=== PATIENT | male | born 1955 | race Caucasian/White ===

== ENCOUNTER 2018-08-14 12:49 | Emergency (ER) | payer OTHER ==
[2018-08-14] MEDS ORDERED: oxyCODONE/Acetamin 5/325 MG* TAB PO ONE (14:30)
--- NOTE | 2018-08-14 14:30 | ED ---
Back Pain - HPI Summary HPI Summary: Pt is a 63 y/o M presenting to [facility] with his sister with a CC of lower left back pain that has been waking him up at night. He states that the pain is described as a burning and has been getting worse for around 4 weeks. He stated that he has trouble moving when he first wakes up in the morning. He described that he had one day of tingling that radiated from his back to his knees. He denies any weakness, fever, N/V/D, Cp, neck pain, abdominal pain, headaches and cough. He has no alleviating or aggravating symptoms. He has a Hx of rheumatoid arthritis in his hands. He also has a Hx of back surgery that left him with 2 rods, 3-4 screws and back plates. He had a herniated, bulging disk, and a curvature of the spine 3 years ago. He also has had 3 knee surgeries and a hip replacement. He reported a 2nd surgery in april 2017. He has been moving back to [place] for the past week. - History of Current Complaint Chief Complaint: EDBackInjuryPain Stated Complaint: NAUSEA AND BACK PAIN PER PT Time Seen by Provider: 08/14/18 14:16 Hx Obtained From: Patient Onset/Duration: Gradual Onset - for about a month, Lasting Weeks - 4, Still Present, Worse Since Onset/Duration: Started Weeks Ago - 4, Still Present, Worse Since Timing: Constant Back Pain Location: Is Diffuse - low back Severity Initially: Mild Severity Currently: Moderate Pain Intensity: 4 Pain Scale Used: 0-10 Numeric Character: Burning Aggravating Symptom(s): Movement - especially in the morning, Other Alleviating Symptom(s): Nothing Associated Signs And Symptoms: Positive: Negative - weakness, fever, N/V/D, Cp, neck pain, abdominal pain, headaches, bladder or bowel incontinence, and cough. , Tingling - one day, radiated from his low back to his knees bilaterally - Allergies/Home Medications Allergies/Adverse Reactions: Allergies Allergy/AdvReac Type Severity Reaction Status Date / Time Penicillins Allergy Intermediate Rash Verified 08/14/18 13:01 PMH/Surg Hx/FS Hx/Imm Hx Previously Healthy: No Cardiovascular History: Reports: Hx Hypertension Musculoskeletal History: Reports: Hx Rheumatoid Arthritis - Surgical History Hx Anesthesia Reactions: No Other Surgical History: extensive back surgery in 2016, 3 knee surgeries, hip replacement surgery, 2nd back surgery in april 2017 Infectious Disease History: No Infectious Disease History: Denies: Traveled Outside the [place] in Last 30 Days - Family History Known Family History: Positive: Cardiac Disease - Social History Alcohol Use: Occasionally Hx Substance Use: No Substance Use Type: Reports: None Hx Tobacco Use: No Smoking Status (MU): Never Smoked Tobacco Review of Systems Negative: Fever Negative: Chest Pain Negative: Shortness Of Breath, Cough Negative: Abdominal Pain, Vomiting, Diarrhea, Nausea Negative: incontinence - NEGATIVE: bowel or urinary incontinence Positive: Myalgia - low back pain Neurological: Other - tingling that radiated from his low back to his knees for one day Negative: Headache, Weakness All Other Systems Reviewed And Are Negative: Yes Physical Exam - Summary Physical Exam Summary: Appearance: Well-appearing, Well-nourished, lying in bed comfortably Skin: Warm, dry, no obvious rash Eyes: sclera anicteric, no conjunctival pallor ENT: mucous membranes moist, pharynx appears normal Neck: Supple, nontender Respiratory: Clear to auscultation, no signs of respiratory distress Cardiovascular: Normal S1, S2. No murmurs. Normal distal pulses in tibial and radial bilaterally. Abdomen: Soft, nontender, normal active bowel sounds present Musculoskeletal: Back: well healed surgical scars over his lumbar spine, limited ROM in flection of the back, no vertebral tenderness, no skin lesions Neurological: A&Ox3, awake and alert, mentation is normal, speech is fluent and appropriate, no foot drop, or other focal weakness in the LE, normal gait Psychiatric: affect is normal, does not appear anxious or depressed Triage Information Reviewed: Yes Vital Signs On Initial Exam: Initial Vitals Temp Pulse Resp BP Pulse Ox 98.5 F 94 14 145/97 97 08/14/18 12:54 08/14/18 12:54 08/14/18 12:54 08/14/18 12:54 08/14/18 12:54 Vital Signs Reviewed: Yes Diagnostics - Vital Signs Vital Signs Temp Pulse Resp BP Pulse Ox 08/14/18 12:54 98.5 F 94 14 145/97 97 - Laboratory Result Diagrams: 08/14/18 14:42 08/14/18 14:42 Lab Statement: Any lab studies that have been ordered have been reviewed, and results considered in the medical decision making process. - Radiology Lumbar Spine X-Ray Radiology Interpretation Completed By: Radiologist Summary of Radiographic Findings: 1. EXTENSIVE POSTSURGICAL CHANGES. THE SURGICAL HARDWARE APPEARS INTACT. 2. DEGENERATIVE DISC DISEASE. ED Physician has reviewed this report. Back Pain Course/Dx - Course Course Of Treatment: Pt is a 63 y/o M presenting to [facility] with his sister with a CC of lower left back pain that has been waking him up at night. He states that the pain is described as a burning and has been getting worse for around 4 weeks. He stated that he has trouble moving when he first wakes up in the morning. He described that he had one day of tingling that radiated from his back to his knees. Upon his PE he is found to have well healed surgical scars over his lumbar spine, limited ROM in flection of the back, no vertebral tenderness, and no skin lesions over his back. He also has no foot drop, or other focal weakness in the LE, and a normal gait. He has abnormal lab values in BUN, BUN/Creatinine ratio, Glucose. Pt was given 1 5/325 Percocet TAB during his ED course. His lumbar spine X-Ray shows: 1. EXTENSIVE POSTSURGICAL CHANGES. THE SURGICAL HARDWARE APPEARS INTACT 2. DEGENERATIVE DISC DISEASE. Pt will be discharge with acute low back pain and a referal with Dr. Mendoza with for a follow up at his office. - Diagnoses Provider Diagnoses: Acute low back pain Discharge - Sign-Out/Discharge Documenting (check all that apply): Patient Departure - discharge Patient Received Moderate/Deep Sedation with Procedure: No - Discharge Plan Condition: Stable Disposition: HOME Prescriptions: oxyCODONE/Acetamin 5/325 MG* [Percocet 5/325 TAB*] 1 tab PO Q4H PRN #15 tab MDD 6 PRN Reason: Pain - Back Patient Education Materials: Acute Low Back Pain (ED) Referrals: [facility] [Outside] Rosalba Seay MD [Medical Doctor] - Additional Instructions: The [facility] should be able to help you until you find a local principal cloud architect and/or plastic block boiler reliner. Dr. Gutierrez is a spine surgeon and given your prior surgical history it would be good to have him see you and review your films. If you have any MRI scans or other imaging tests from [place] it would be very helpful to get copies of those images. - Billing Disposition and Condition Condition: STABLE Disposition: Home - Attestation Statements Document Initiated by Scribe: Yes Documenting Scribe: Willis Elam Provider For Whom Scribbela is Documenting (Include Credential): Christopher Manuel MD Scribe Attestation: IWillis, scribed for Christopher Manuel MD on 08/16/18 at 0450. Scribe Documentation Reviewed: Yes Provider Attestation: The documentation as recorded by the Willis molina accurately reflects the service I personally performed and the decisions made by meChristopher MD Status of Scribe Document: Viewed
[2018-08-14 14:49] LABS: ABS Eosinophils 0.2 10^3/ul (0-0.6); ABS Monocytes 0.6 10^3/ul (0-0.8); ABS Neutrophils 3.7 10^3/ul (1.5-7.7); Eosinophil % 2.9 %; Hematocrit 38 % (42-52); Lymphocyte % 17.5 %; Mean Corpuscular HGB Conc 34 g/dL (31-36); Mean Corpuscular Hemoglobin 29 pg (27-31); Mean Corpuscular Volume 87 fL (80-94); Mean Platelet Volume 7.6 fL (7.4-10.4); Platelet Count 199 10^3/uL (150-450); Red Blood Count 4.43 10^6 /uL (4.18-5.48); Red Cell Distribution Width 14 % (10-15); White Blood Count 5.4 10^3/uL (3.5-10.8)
[2018-08-14 15:05] LABS: BUN/Creatinine Ratio 29.6 (8-20); C Reactive Protein 5.37 mg/L (<8.01); Calcium 9.2 mg/dL (8.6-10.3); EGFR African American 93.5 (>60); EGFR Non-African American 77.2 (>60)
[2018-08-14 15:36] VITALS: BP 141/76
== END 2018-08-14 15:35 | disposition home or self-care (01) ==
LOC: ED 12:49
DX: M54.5 Low back pain (principal); I10 Essential (primary) hypertension
CPT/HCPCS: 36415; 72100; 80048; 85025; 86140; 99282; A9270-GY

== ENCOUNTER 2018-08-16 21:49 | Emergency (ER) | payer OTHER ==
--- NOTE | 2018-08-17 01:07 | ED ---
Back Pain - HPI Summary HPI Summary: This patient is a 63 year old M presenting to [facility] with a chief complaint of sharp left lower back/flank pain since 08/13/18 when he was seen in the ED. Since that visit his pain has been increasing and is not controlled with ibuprofen. Pain rated 6/10 in severity. Denies abdominal pain, fever, and dysuria. Patient reports a history of kidney stones. - History of Current Complaint Chief Complaint: EDFlankPain Stated Complaint: BACK PAIN PER PT Time Seen by Provider: 08/17/18 00:58 Hx Obtained From: Patient Onset/Duration: Gradual Onset, Lasting Weeks Onset/Duration: Started Weeks Ago Timing: Constant Back Pain Location: Is Discrete @ - left lower back/flank pain Pain Intensity: 6 Pain Scale Used: 0-10 Numeric Character: Sharp Associated Signs And Symptoms: Positive: Flank Pain. Negative: Fever, Abdominal Pain - Allergies/Home Medications Allergies/Adverse Reactions: Allergies Allergy/AdvReac Type Severity Reaction Status Date / Time Penicillins Allergy Intermediate Rash Verified 08/16/18 21:55 PMH/Surg Hx/FS Hx/Imm Hx Cardiovascular History: Reports: Hx Hypertension Musculoskeletal History: Reports: Hx Rheumatoid Arthritis - Surgical History Hx Anesthesia Reactions: No - Immunization History Immunizations Up to Date: Yes Infectious Disease History: No Infectious Disease History: Denies: Traveled Outside the US in Last 30 Days - Family History Known Family History: Positive: Cardiac Disease - Social History Alcohol Use: Occasionally Hx Substance Use: No Substance Use Type: Reports: None Hx Tobacco Use: No Smoking Status (MU): Never Smoked Tobacco Review of Systems Negative: Fever Negative: Abdominal Pain Positive: flank pain. Negative: dysuria All Other Systems Reviewed And Are Negative: Yes Physical Exam - Summary Physical Exam Summary: Appearance: Well-appearing, Well-nourished, lying in bed comfortably Skin: Warm, dry, no obvious rash Eyes: sclera anicteric, no conjunctival pallor ENT: mucous membranes moist, pharynx appears normal Neck: Supple, nontender Respiratory: Clear to auscultation, no signs of respiratory distress Cardiovascular: Normal S1, S2. No murmurs. Normal distal pulses in tibial and radial bilaterally. Abdomen: Soft, nontender, normal active bowel sounds present Musculoskeletal: Normal, Strength/ROM Intact Neurological: A&Ox3, awake and alert, mentation is normal, speech is fluent and appropriate Psychiatric: affect is normal, does not appear anxious or depressed Triage Information Reviewed: Yes Vital Signs On Initial Exam: Initial Vitals Temp Pulse Resp BP Pulse Ox 97.5 F 92 16 162/106 100 08/16/18 21:50 08/16/18 21:50 08/16/18 21:50 08/16/18 21:50 08/16/18 21:50 Vital Signs Reviewed: Yes Diagnostics - Vital Signs Vital Signs Temp Pulse Resp BP Pulse Ox 08/17/18 00:35 97.0 F 84 20 147/86 95 08/16/18 21:50 97.5 F 92 16 162/106 100 - Laboratory Lab Statement: Any lab studies that have been ordered have been reviewed, and results considered in the medical decision making process. Back Pain Course/Dx - Course Course Of Treatment: 63 year old M presenting to [facility] with a chief complaint of sharp left lower back/flank pain since 08/13/18 when he was seen in the ED. Denies abdominal pain, fever, and dysuria. Patient is given oxycodone for pain. UA is unremarkable. Pain is resolved. Patient is discharged home and is instructed to follow up with sports medicine. Patient is agreeable with this plan. - Diagnoses Provider Diagnoses: Back pain Discharge - Sign-Out/Discharge Documenting (check all that apply): Patient Departure - discharge Patient Received Moderate/Deep Sedation with Procedure: No - Discharge Plan Condition: Good Disposition: HOME Patient Education Materials: Acute Low Back Pain (ED) Referrals: [facility] [Provider Group] - As Soon As Possible - Billing Disposition and Condition Condition: GOOD Disposition: Home - Attestation Statements Document Initiated by Quoc: Yes Documenting Scribe: Wendie Coleman Provider For Whom Quoc is Documenting (Include Credential): Christopher Manuel MD Scribe Attestation: Wendie Corbin, scribed for Christopher Manuel MD on 08/19/18 at 0828. Scribe Documentation Reviewed: Yes Provider Attestation: The documentation as recorded by the Wendie molina accurately reflects the service I personally performed and the decisions made by me, Christopher Manuel MD Status of Scribe Document: Viewed
[2018-08-17] MEDS ORDERED: oxyCODONE/Acetamin 5/325 MG* TAB PO ONE (01:08)
[2018-08-17 01:35] LABS: Urine Appearance Clear; Urine Bilirubin Negative (Negative); Urine Blood Negative (Negative); Urine Color Yellow; Urine Glucose Negative (Negative); Urine Ketones Negative (Negative); Urine Nitrite Negative (Negative); Urine Protein Negative (Negative); Urine Specific Gravity 1.015 (1.010-1.030); Urine Urobilinogen Negative (Negative)
[2018-08-17 03:11] VITALS: BP 146/83
== END 2018-08-17 03:10 | disposition home or self-care (01) ==
LOC: ED 21:49
DX: M54.9 Dorsalgia, unspecified (principal); I10 Essential (primary) hypertension; M06.9 Rheumatoid arthritis, unspecified
CPT/HCPCS: 81003; 99282; A9270-GY

== ENCOUNTER 2018-12-04 05:33 | Inpatient (IN) | payer MEDICARE, OTHER ==
[~2018-12-04 05:33] MED LIST: Acetaminophen TAB* 325 MG PO ONE; Buffered Lidocaine 1% SYRIN* 1 ML/SYRINGE INTRADERM ONE; Vancomycin(*) 1,000 MG in NS 0.9% 250 ML* 250 ML IVPB SCH
--- OUTSIDE RECORDS SUMMARY | 2018-12-04 05:37 | XMS REPORT | Continuity of Care Document ---
:1955 External Reference #:[id number] Author Name Da Suarez DO FACC (transmitted by agent of provider Staci De Guzman) Address [address] [place] [address] Care Team Providers Name Role Phone Mathieu Camargo D.O. - Family Medicine Care Team Information Equity Research Associate Problems Description No Information Available Social History Type Date Description Comments Sex Unknown ETOH Use Occasionally consumes alcohol Tobacco Use Start: Unknown Patient has never smoked Recreational Drug Use Denies Drug Use Smoking Status Reviewed: 11/24/18 Patient has never smoked Allergies, Adverse Reactions, Alerts Active Allergies Reaction Severity Comments Date Penicillin V 09/10/2018 Medications Active Medications SIG Qnty Indications Ordering Provider Date Oxycodone-Acetaminophen 1 tabs by 21su Navarrete 09/23/2018 mouth every 4 MD Geena 5-325mg Tablets hours as needed pain Atorvastatin Calcium 1 tab by mouth Unknown 40mg once daily Tablets Lisinopril-Hydrochloroth 1 tablet po Unknown iazide daily 20-12.5mg Tablets Omeprazole 1 tab by mouth Unknown 20mg Capsules DR once daily Tamsulosin HCL 1 tab by Unknown 0.4mg Capsules mouth once daily Duloxetine HCL 1 tab by mouth Unknown 60mg Caps DR twice daily Part Methotrexate 5 tabs by Unknown 2.5mg Tablets mouth once a week Folic Acid 1 tab by mouth Unknown 1mg Tablets once daily Pramipexole 1 po tid Unknown Dihydrochloride 1mg Tablets Immunizations Description No Information Available Vital Signs Date Vital Result Comment 11/24/2018 2:21pm Height 67 inches 5'7" Weight 160.00 lb with shoes Heart Rate 86 /min BP Systolic 126 mmHg LA BP Diastolic 62 mmHg LA BP Systolic Sitting 132 mmHg Ra BP Diastolic Sitting 80 mmHg Ra BP Systolic Standing 120 mmHg Ra BP Diastolic Standing 60 mmHg Ra BMI (Body Mass Index) 25.1 kg/m2 Ejection Fraction None 10/20/2018 3:44pm Height 67 inches 5'7" Weight 161.00 lb Heart Rate 100 /min BP Systolic Sitting 124 mmHg BP Diastolic Sitting 76 mmHg Respiratory Rate 16 /min O2 % BldC Oximetry 96 % BMI (Body Mass Index) 25.2 kg/m2 Results Test Date Facility Test Result H/L Range Note CBC Auto 09/24/2018 [facility] White Blood 4.8 10^3/uL Normal 3.5-10.[address] [place] [address] [phone] Red Blood Count 4.56 10^6/uL Normal 4.18-5.48 Hemoglobin 13.6 g/dL Low 14.0-18.0 Hematocrit 39 % Low 42-52 Mean Corpuscular Volume 86 fL Normal 80-94 Mean Corpuscular Hemoglobin 30 pg Normal 27-31 Mean Corpuscular HGB Conc 35 g/dL Normal 31-36 Red Cell Distribution Width 15 % Normal 10-15 Platelet Count 202 10^3/uL Normal 150-450 Mean Platelet Volume 7.9 fL Normal 7.4-10.4 Abs Neutrophils 3.5 10^3/uL Normal 1.5-7.7 Abs Lymphocytes 0.9 10^3/uL Low 1.0-4.8 Abs Monocytes 0.3 10^3/uL Normal 0-0.8 Abs Eosinophils 0.1 10^3/uL Normal 0-0.6 Abs Basophils 0.0 10^3/uL Normal 0-0.2 Abs Nucleated RBC 0.0 10^3/uL Granulocyte % 71.8 % Lymphocyte % 18.4 % Monocyte % 6.9 % Eosinophil % 2.4 % Basophil % 0.5 % Nucleated Red Blood Cells % 0.0 Laboratory test 09/24/2018 [facility] Erythrocyte Sed 15 mm/Hr Normal 0-[address] [place] [address] [phone] C Reactive Protein 3.60 mg/L Normal <8.01 Procedures Date Code Description Status 11/24/2018 61470 EKG Tracing & Interpretation Completed Medical Devices Description No Information Available Encounters Type Date Location Provider Dx Diagnosis Office Visit 10/20/2018 [facility] M41.9 Scoliosis, 3:30p [facility] Se[facility] MD unspecified M47.895 Other spondylosis, thoracolumbar region 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, thoracolumbar region Office Visit 10/17/2018 [facility] M47.895 Other spondylosis, 10:30a [facility] Re[facility] thoracolumbar region Office Visit 09/26/2018 [facility] 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, lumbar region M48.05 Spinal stenosis, thoracolumbar region Office Visit 09/10/2018 1:00p [facility]att M54.5 Low back Of [facility] PAIGE pain Assessments Date Code Description Provider 11/24/2018 Z01.810 Encounter for preprocedural Da Suarez DO [facility] cardiovascular examination 11/24/2018 I10 Essential (primary) hypertension Da Suarez DO FAC 11/24/2018 E78.5 Hyperlipidemia, unspecified Da Suarez DO FAC 11/13/2018 M47.816 Lumbar spondylosis Rosalba Seay MD 11/13/2018 M51.35 Other intervertebral disc aj, Rosalba Seay MD thoracolumbar region 10/20/2018 M41.9 Scoliosis, unspecified Rosalba Seay MD 10/20/2018 M47.895 Other spondylosis, thoracolumbar region Rosalba Seay MD 10/20/2018 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, Rosalba Seay MD thoracolumbar region 10/17/2018 M47.895 Other spondylosis, thoracolumbar region ROYAL Pace 09/26/2018 M47.816 Lumbar spondylosis ROYAL Pace 09/26/2018 M48.05 Spinal stenosis, thoracolumbar region ROYAL Pace 09/10/2018 M54.5 Lumbar facet joint pain ROYAL Pace Plan of Treatment Future Appointment(s):03/09/2019 1:00 pm - ROYAL Pace at [facility]01/07/2019 3:30 pm - ROYAL Pace at [facility]12/12/2018 9:00 am - Rosalba Seay MD at [facility]11/25/2018 11:00 am - Tito Mazariegos MD at [facility]12/04/2018 7:30 am - ROYAL Pace at [facility] 7:30 am - Rosalba Seay MD at [facility] - Da Suarez DO FACCZ01.810 Encounter for preprocedural cardiovascular [id number] Essential (primary) cqumhubhteaeM77.5 Hyperlipidemia, unspecified Functional Status Description No Information Available Mental Status Description No Information Available Referrals Refer to Dr Reason for Referral Status Appt Da Suarez DO, FACC preoperative consult Sent [address] [id number] [phone] [facility] Axium Nanofibers [facility] to request a Sent nutritional consultation to prepare the patient for this operation [address] [place] [address] [phone] Nikhil Corona MD preoperative consult Sent [address] [place] [address] [place] [address] [phone] Nik Faulkner MD 63 y/o male with c/o increased axial low Scheduled 08/2018 back pain has undergone lumbar fusion x 2. Patient would like to be seen soon as possible. [address] [place] [address] [phone]
--- OUTSIDE RECORDS SUMMARY | 2018-12-04 05:37 | XMS REPORT | Summary of Care ---
:1955 Author Organization [facility] Address [address] [place] [address] Care Team Providers Name Role Phone Mathieu Camargo DO Primary Care Provider Reason for Visit Reason Comments Error Encounter Details Date Type Department Care Team Description 11/04/[address] [facility] Mathieu Camargo DO ERRONEOUS Practice [address] [facility] ENCOUNTER--DISREGARD [address] [place] [address] (Primary Dx) [place] [address] [phone] Allergies Active Allergy Reactions Severity Noted Date Comments Penicillins Rash 09/02/2018 documented as of this encounter (statuses as of 11/06/2018) Medications Medication Sig Dispensed Refills Start Date End Date Status atorvastatin Take 40 mg 0 Active (LIPITOR) 40 MG Oral by mouth Tab DAILY. pramipexole Take 1 mg 0 Active (MIRAPEX) 1 MG Oral by mouth Tab THREE TIMES DAILY. methylphenidate Take 20 mg 0 Active (RITALIN) 20 MG Oral by mouth Tab THREE TIMES DAILY. duloxetine Take 60 mg 0 Active (CYMBALTA) 60 MG by mouth Oral CAPSULE ENTERIC TWICE COATED PARTICLES DAILY. Tamsulosin HCl Take 0.4 mg 0 Active (FLOMAX) 0.4 MG Oral by mouth Cap DAILY. pantoprazole Take 20 mg 0 Active (PROTONIX) 20 MG by mouth Oral Tab EC DAILY. Methotrexate 2.5 MG Take 15 mg 0 Active Oral Tab by mouth EVERY 7 DAYS. OXYcodone-acetaminop Take 1 Tab 10 Tab 0 10/01/2018 Active hen (PERCOCET) 5-325 by mouth MG Oral Tab EVERY TWELVE HOURS NEEDED (pain). Max Daily Amount: 2 Tabs. lisinopril-hydrochlo Take 1 Tab 90 Tab 0 11/04/2018 Active rothiazide by mouth (ZESTORETIC, DAILY. PRINZIDE) 20-12.5 MG Oral Tab Dexamethasone 0.5 Take 5 mL 300 mL 0 11/04/2018 Active MG/5ML Oral Elixir by mouth 9 FOUR TIMES DAILY for 5 days. 5 mL swish and spit four times daily diclofenac Take 75 mg 0 Discontinued (VOLTAREN) 75 MG by mouth 9 Oral Tab EC TWICE DAILY. lisinopril-hydrochlo Take 1 Tab 0 Discontinued rothiazide by mouth. 9 (Reorder) (ZESTORETIC, PRINZIDE) 20-12.5 MG Oral Tab predniSONE Take 1 Tab 6 Tab 0 09/02/2018 Discontinued (DELTASONE) 20 MG by mouth 9 Oral TabIndications: DAILY. Left-sided low back pain without sciatica, unspecified chronicity documented as of this encounter (statuses as of 11/06/2018) Active Problems Problem Noted Date Rheumatoid arthritis HTN (hypertension) HLD (hyperlipidemia) documented as of this encounter (statuses as of 11/06/2018) Social History Tobacco Use Types Packs/Day Years Used Date Never Smoker Smokeless Tobacco: Never Used Alcohol Use Drinks/Week oz/Week Comments Not Currently Sex Assigned at Date Recorded Not on file Job Start Date Occupation Industry Not on file Not on file Not on file Travel History Travel Start Travel End No recent travel history available. documented as of this encounter Last Filed Vital Signs Vital Sign Reading Time Taken Comments Blood Pressure 142/68 11/04/2018 2:36 PM EDT Pulse 95 11/04/2018 2:36 PM EDT Temperature - - Respiratory Rate - - Oxygen Saturation 98% 11/04/2018 2:36 PM EDT Inhaled Oxygen Concentration - - Weight 73.7 kg (162 lb 8 oz) 11/04/2018 2:36 PM EDT Height 170.2 cm (5' 7") 11/04/2018 2:36 PM EDT Body Mass Index 25.45 11/04/2018 2:36 PM EDT documented in this encounter Progress Notes Mathieu Camargo DO - 11/04/2018 2:40 PM EDTA user error has taken place: encounter opened in error, closed for administrative reasons. documented in this encounter Plan of Treatment Health Maintenance Due Date Last Done Comments MEDICARE ANNUAL WELLNESS VISIT 1955 HIV SCREENING 06/25/1970 COLONOSCOPY SCREENING 06/25/2005 ZOSTER IMMUNIZATION SERIES (1 of 06/25/2005 2) INFLUENZA VACCINE (#1) 2018 DEPRESSION SCREENING 09/03/2019 09/02/2018 LIPID DISORDER SCREENING 09/03/2019 09/02/2018 DIABETES SCREENING 11/05/2019 11/04/2018 HEPATITIS C SCREENING Completed 11/04/2018 HPV IMMUNIZATION SERIES Aged Out No longer eligible based on patient's age to complete this topic MENINGOCOCCAL VACCINE IMM Aged Out No longer eligible based on patient's age to complete this topic PNEUMOCOCCAL 0-64 YRS Aged Out No longer eligible based on patient's age to complete this topic documented as of this encounter Goals Goal Patient Goal Associated Recent Patient-Stated? Author Type Problems Progress Blood Pressure Blood Pressure 142/68 No Mathieu Camargo < 150/90 (11/04/2018 DO Anneliese 3:17 PM EDT) Note: This is an individualized treatment (blood pressure) goal for Tito Walker: Displayed above (on the left) is your goal for blood pressure control. Your most recent blood pressure is also shown above, on the right. You should try to achieve blood pressures that are lower than your goal listed above (on the left). Take all prescribed medications as directed Self-management No Mathieu Camargo DO Note: This is an individualized self-management goal for Tito Walker: Please take all prescribed medications as directed. 1. Do not skip doses. If you cannot afford your medications, talk with your doctor. 2. Use a pill reminder system such as a pill box if needed. Your pharmacist can help you with this. 3. Contact your Pharmacy 5 days before your medication runs out. If you cannot take your medications for any reasons, talk with your doctor. 4. Please bring all of your medication bottles and inhalers (or a list of all your medications/inhalers) with you to every visit. Potential barriers to meeting all of your care plan goals will continue to be addressed on an ongoing basis. documented as of this encounter Results HEPATITIS C ANTIBODY WITH RELEX RNA, RT PCR (11/04/2018 3:40 PM EDT) Hepatitis C Ab 0.01 <1.00 S/C [facility] Specimen Blood Narrative Performed At [facility] Test Result [facility] Conclusion From Testing Algorithm <1.00 Negative >=1.00 Reactive Note For Reactive Results: A positive test result by this screening method does not confirm the presence of Hepatitis C antibodies. Confirmation by Hepatitis C Virus RNA PCR (Heptamax) is required. Due to stability issues, a new specimen must be obtained for Hepatitis C Virus RNA PCR testing. Performing Organization Address City/State/Zipcode Phone Number [facility] [address] [place] [address] [phone] COMPREHENSIVE METABOLIC PANEL (11/04/2018 3:40 PM EDT) Sodium 138 134 - 145 mmol/L [facility] Potassium 4.1 3.5 - 5.1 mmol/L [facility] Chloride 103 98 - 107 mmol/L [facility] CO2 27 22 - 30 mmol/L [facility] Calcium 9.2 8.3 - 10.1 mg/dl [facility] Albumin 4.3 3.5 - 5.0 g/dl [facility] BUN 30 (H) 9 - 20 mg/dl [facility] Creatinine 0.9 0.8 - 1.5 mg/dl [facility] Glucose 97 70 - 99 mg/dl [facility] Total Protein 7.4 6.3 - 8.2 g/dl [facility] Total Bilirubin 1.4 (H) 0.0 - 1.1 MG/DL [facility] AST 29 17 - 59 U/L [facility] ALT 25 21 - 72 U/L [facility] Alkaline 95 40 - 150 U/L [facility] Phosphatase [facility] eGFR >60 See Interpretation [facility] Comment: Below ml/min/1.73ml [facility] Estimated GFR Interpretation: Above 60ml/min/1.73m2 = Normal Renal Function 30-59 ml/min/1.73m2 = Stage 3 Chronic Kidney Disease 15-29 ml/min/1.73m2 = Stage 4 Chronic Kidney Disease Less than 15 ml/min/1.73m2 = Stage 5 Chronic Kidney Disease The GFR value is calculated using the Modification of Diet in Renal Disease ( MDRD) Study Equation which can be found at: https://www.kidney.org/content/alpm-uvkjj-zrcreevo BUN/Creatinine 33 (H) 6 - 22 RATIO [place] [employer] [facility] Anion Gap 8 3 - 11 mmol/L [place] [employer] [facility] A/G Ratio 1.4 0.8 - 2.0 ratio [facility] Specimen Blood Performing Organization Address City/State/Zipcode Phone Number [place] [employer] [facility] [address] [place] [address] [phone] documented in this encounter Visit Diagnoses Diagnosis ERRONEOUS ENCOUNTER--DISREGARD - Primary documented in this encounter Insurance Payer Benefit Plan / Subscriber ID Effective Phone Address Type Group Dates MEDICARE MEDICARE PART A xxxxxxxxxxx 2015-Pres Medicare & B ent [employer] MEDICARE [employer] MEDICARE xxxxxxxxx 2018-Prese Commercial SUPPLEMENT SUPPLEMENT nt (Home) [address] [place] [address] documented as of this encounter
--- OUTSIDE RECORDS SUMMARY | 2018-12-04 05:37 | XMS REPORT | Summary of Care ---
:1955 Author Organization [facility] Address [address] [place] [address] Care Team Providers Name Role Phone Mathieu Camargo DO Primary Care Provider Reason for Visit Reason Comments Pre-op Exam here for preop Physical for back surgery Encounter Details Date Type Department Care Team Description 11/04/2018 Office Visit [facility] Mathieu Camargo DO Spondylosis of lumbar region without myelopathy or radiculopathy (Primary Dx); Practice [address] [facility] Need for hepatitis C screening test; [address] [facility] [place] [address] Pre-op evaluation; [place] [address] Hypertension, unspecified type; [phone] Aphthous ulcer of mouth; (Fax) Constipation due to opioid therapy Allergies Active Allergy Reactions Severity Noted Date Comments Penicillins Rash 09/02/2018 documented as of this encounter (statuses as of 11/06/2018) Medications Medication Sig Dispensed Refills Start Date End Date Status atorvastatin (LIPITOR) 40 Take 40 mg by 0 Active MG Oral Tab mouth DAILY. pramipexole (MIRAPEX) 1 Take 1 mg by 0 Active MG Oral Tab mouth THREE TIMES DAILY. methylphenidate (RITALIN) Take 20 mg by 0 Active 20 MG Oral Tab mouth THREE TIMES DAILY. duloxetine (CYMBALTA) 60 Take 60 mg by 0 Active MG Oral CAPSULE ENTERIC mouth TWICE COATED PARTICLES DAILY. Tamsulosin HCl (FLOMAX) Take 0.4 mg by 0 Active 0.4 MG Oral Cap mouth DAILY. pantoprazole (PROTONIX) Take 20 mg by 0 Active 20 MG Oral Tab EC mouth DAILY. Methotrexate 2.5 MG Oral Take 15 mg by 0 Active Tab mouth EVERY 7 DAYS. OXYcodone-acetaminophen Take 1 Tab by 10 Tab 0 10/01/2018 Active (PERCOCET) 5-325 MG Oral mouth EVERY Tab TWELVE HOURS NEEDED (pain). Max Daily Amount: 2 Tabs. documented as of this encounter (statuses as [...] Time Taken Comments Blood Pressure 142/68 11/04/2018 3:17 PM EDT Pulse 95 11/04/2018 3:17 PM EDT Temperature - - Respiratory Rate - - Oxygen Saturation 98% 11/04/2018 3:17 PM EDT Inhaled Oxygen Concentration - - Weight 73.7 kg (162 lb 8 oz) 11/04/2018 3:17 PM EDT Height 170.2 cm (5' 7") 11/04/2018 3:17 PM EDT Body Mass Index 25.45 11/04/2018 3:17 PM EDT documented in this encounter Patient Instructions Patient InstructionsMathieu Camargo, DO - 11/04/2018 2:40 PM EDTStop ritalin 10 days prior to surgery No motrin, aleve 5 days prior to surgery. Do blood work today For bowel regularity: miralax 17 g once a day. Not enough use colace stool softener too. If that combo not enough add senna Start blood pressure again. Goal BP less than 140/90. If not at goal by the time you see cardiology,they will address it. For mouth lesion: 5 mL swish and spit three to four times daily. It is important to keep the medication in the mouth for five minutes prior to spitting it out. Do not rinse afterward and avoid eating or drinking for 30 minutes. Not better in a week, call me back. Will send to ENT documented in this encounter Progress Notes Mathieu Camargo DO - 11/04/2018 2:40 PM EDT PATIENT: Tito Walker : 1955 DATE OF SERVICE: 11/04/2018 Subjective SUBJECTIVE: Tito Walker is a 63-y.o. male who presents to the office today for a preoperative consultation at the request of Dr. Seay, who will perform a posterior arthrodesis T11-L5, possible T9 pelvis with DBX, autologous iliac crest bone graft, insertion and revision of pedicle screws and possible multiple laminectomies, L5-S1 TLIF and iliac or S1A1 screws on 11/27/18. Patient complains of cardiac symptoms: none. Patient denies cardiac symptoms: chest pain, chest pressure/discomfort, dyspnea , palpitations, irregular heart beats, near-syncope, syncope, fatigue, orthopnea , paroxysmal nocturnal dyspnea, exertional chest pressure/discomfort, lower extremity edema, tachypnea. Past history of pulmonary embolism/deep vein thrombosis: no. There is a history of bleeding complications: no Past history of anesthetic problem: No. Reports mouth lesion for last 1-2 weeks. Painful with eating/drinking With opioids last 1 month for pain control has experienced constipation on and off. Exercise capacity: Can you walk 2 blocks on level ground, or carry 2 bags of groceries up 2 flights of stairs? No because of his back pain Count the number of risk factors in the revised Alas cardiac risk index. ( RCRI): x High risk procedure: eg vascular surgery, any open intraperitoneal or intrathoracic History of ischemic heart disease (history of HI or a positive exercise test, current complaint of chest pain considered to be secondary to myocardial ischemia, use of nitrate therapy, or ECG with pathological Q waves; do not count prior coronary revascularization procedure unless one of the other criteria for ischemic heart disease is present) Hx of CHF, either systolic or diastolic History of cerebrovascular disease (TIA or Stroke) Diabetes mellitus requiring treatment with insulin Preoperative serum creatinine >2.0 mg/dl The risk of cardiac , nonfatal myocardial infarction, and nonfatal cardiac arrest according to the number of above risk predictors is estimated to be: One risk factor - 1.0 percent (95% CI: 0.5 - 1.4) Screening for sleep apnea: Stop-Bang Snoring: Do you snore loudly (louder than talking or heard through closed doors )? Tired: Do you often feel tired, fatigued, or sleepy during the day? Observed: Has anyone observed you stop breathing during your sleep? x Pressure: Do you have or are you being treated for high blood pressure? BMI: >35 kg/m2? x Age: >50? Neck circumference: >40 cm? x Gender: Male? "High risk" for NASRA: (> =) 3 questions "yes" Screening for Alzheimer's 1. During the past 12 months, have you experienced confusion or memory loss that is happening more often or is getting worse? No 2. During the past 7 days, did you need help with others to perform everyday activities such as eating, getting dressed, grooming, bathing, walking, or using the toilet? No 3. During the past 7 days, did you need help from others to take care of things such as laundry and housekeeping, banking, shopping, using the telephone, food preparation, transportation, or taking your own medications? No Current active problems are: Patient Active Problem List Diagnosis Date Noted Rheumatoid arthritis (HCC) HTN (hypertension) HLD (hyperlipidemia) Past Medical History: Diagnosis Date HLD (hyperlipidemia) HTN (hypertension) Rheumatoid arthritis (HCC) History reviewed. No pertinent family history. Current Outpatient Medications Medication Sig atorvastatin (LIPITOR) 40 MG Oral Tab Take 40 mg by mouth DAILY. Dexamethasone 0.5 MG/5ML Oral Elixir Take 5 mL by mouth FOUR TIMES DAILY for 5 days. 5 mL swish and spit four times daily duloxetine (CYMBALTA) 60 MG Oral CAPSULE ENTERIC COATED PARTICLES Take 60 mg by mouth TWICE DAILY. lisinopril-hydrochlorothiazide (ZESTORETIC, PRINZIDE) 20-12.5 MG Oral Tab Take 1 Tab by mouthDAILY. Methotrexate 2.5 MG Oral Tab Take 15 mg by mouth EVERY 7 DAYS. methylphenidate (RITALIN) 20 MG Oral Tab Take 20 mg by mouth THREE TIMES DAILY. OXYcodone-acetaminophen (PERCOCET) 5-325 MG Oral Tab Take 1 Tab by mouth EVERY TWELVE HOURS NEEDED (pain). Max Daily Amount: 2 Tabs. pantoprazole (PROTONIX) 20 MG Oral Tab EC Take 20 mg by mouth DAILY. pramipexole (MIRAPEX) 1 MG Oral Tab Take 1 mg by mouth THREE TIMES DAILY. Tamsulosin HCl (FLOMAX) 0.4 MG Oral Cap Take 0.4 mg by mouth DAILY. No current facility-administered medications for this visit. Allergies Allergen Reactions Penicillins Rash Social History Socioeconomic History Marital status: Spouse name: Not on file Number of children: Not on file Years of education: Not on file Highest education level: Not on file Occupational History Not on file Social Needs Financial resource strain: Not on file Food insecurity: Worry: Not on file Inability: Not on file Transportation needs: Medical: Not on file Non-medical: Not on file Tobacco Use Smoking status: Never Smoker Smokeless tobacco: Never Used Substance and Sexual Activity Alcohol use: Not Currently Drug use: Not Currently Sexual activity: Not on file Lifestyle Physical activity: Days per week: Not on file Minutes per session: Not on file Stress: Not on file Relationships Social connections: Talks on phone: Not on file Gets together: Not on file Attends mu-ism service: Not on file Active member of club or organization: Not on file Attends meetings of clubs or organizations: Not on file Relationship status: Not on file Intimate partner violence: Fear of current or ex partner: Not on file Emotionally abused: Not on file Physically abused: Not on file Forced sexual activity: Not on file Other Topics Concern Not on file Social History Narrative From [place] REVIEW OF SYSTEMS: Review of Systems Constitutional: Negative forchills,diaphoresis,fever,malaise/ fatigueand weight loss. HENT: Negative forcongestion,ear discharge,ear pain,sinus pain and sore throat. Eyes: cataract related eye changes. No eye discharge. Respiratory: Negative forcough,hemoptysis,sputum production, shortness of breathand wheezing. Cardiovascular: Negative forchest pain,palpitations,orthopnea, claudication,leg swellingand PND. Gastrointestinal: Negative forabdominal pain,blood in stool,diarrhea ,melena,nauseaand vomiting. + constipation Genitourinary: Negative fordysuria,flank pain,frequency, hematuriaand urgency. Musculoskeletal: no joint pain. + back pain. Skin: Negative foritchingand rash. Neurological: Negative fordizziness,sensory change,speech change, focal weakness,loss of consciousness,weaknessand headaches. Endo/Heme/Allergies: Negative forpolydipsia. Psychiatric/Behavioral: Negative fordepressionand substance abuse. The patientis not nervous/anxious. The patient has hearing aids: No Objective OBJECTIVE: BP 142/68 (BP Location: Left arm, Patient Position: Sitting) | Pulse 95 | Ht 5 ' 7" (1.702 m) | Wt162 lb 8 oz (73.7 kg) | SpO2 98% | BMI 25.45 kg/m GENERAL: alert, cooperative, no distress. SKIN: no rash or abnormalities. EYES: conjunctivae/corneas clear. Pupils equal, round, reactive to light. MOUTH: moist mucous membranes, ventral lateral surface of tongue is a simple aphthous ulcer Mallampati score: 2 LYMPH NODES: No nodes in cervical or supraclavicular. LUNGS: clear to auscultation bilaterally. HEART: regular rate and rhythm, S1, S2 normal, no murmur, click, rub or gallop. ABDOMEN: soft, non-tender. Bowel sounds normal. No masses, no organomegaly. FLANK TENDERNESS: absent. RECTAL: defer exam. EXTREMITIES: extremities normal, atraumatic, no cyanosis or edema. NEUROLOGIC: alert, oriented x3. PSYCHIATRIC: No anxiety. Appropriate to circumstances. Lab Results Component Value Date NA 138 11/04/2018 K 4.1 11/04/2018 CL 103 11/04/2018 CO2 27 11/04/2018 GLUCOSE 97 11/04/2018 BUN 30 (H) 11/04/2018 CREATININE 0.9 11/04/2018 CALCIUM 9.2 11/04/2018 TP 7.4 11/04/2018 ALBUMIN 4.3 11/04/2018 AST 29 11/04/2018 ALT 25 11/04/2018 ALK 95 11/04/2018 TBILI 1.4 (H) 11/04/2018 EGFR >60 11/04/2018 ASSESSMENT: No contraindications to planned surgery 1. Spondylosis of lumbar region without myelopathy or radiculopathy 2. Need for hepatitis C screening test 3. Pre-op evaluation 4. Hypertension, unspecified type 5. Aphthous ulcer of mouth 6. Constipation due to opioid therapy Clinical predictors: The RCRI score is: 1 Respiratory risk: The patient has pre-existing risks of none The risk of airway problems is low based on the mallampati score and the Stop-bang score. Anticoagulation: The patient is not on blood thinners. Recommendations regarding stopping these medications before surgery: see patient instructions His hypertension mildly uncontrolled but then he told me his BP med ran out 5 days ago. I refilled it. Neurosurgery has asked for cardio pre op evaluation as well, I expect his BP to be normal at that visit. Plan PLAN: 1. Patient requires endocarditis prophylaxis: no. 2. Recommend perioperative beta-catrina: no. 3. Patient requires perioperative deep vein thrombosis prophylaxis: Surgeon discretion. 4. Proceed with surgery as planned. Patient Instructions Stop ritalin 10 days prior to surgery No motrin, aleve 5 days prior to surgery. Do blood work today For bowel regularity: miralax 17 g once a day. Not enough use colace stool softener too. If that combo not enough add senna Start blood pressure again. Goal BP less than 140/90. If not at goal by the time you see cardiology,they will address it. For mouth lesion: 5 mL swish and spit three to four times daily. It is important to keep the medication in the mouth for five minutes prior to spitting it out. Do not rinse afterward and avoid eating or drinking for 30 minutes. Not better in a week, call me back. Will send to ENT Author: Mathieu Camargo DO 11/06/2018 11:20 documented in this encounter Plan of Treatment Health Maintenance Due Date Last Done Comments MEDICARE ANNUAL WELLNESS VISIT 1955 HIV SCREENING 06/25/1970 COLONOSCOPY SCREENING 06/25/2005 ZOSTER IMMUNIZATION SERIES ( of 06/25/2005 2) INFLUENZA VACCINE (#1) 2018 [...] Blood Pressure Blood Pressure 142/68 No Mathieu Camarog < 150/90 (11/04/2018 DO Anneliese 3:17 PM EDT) Note: This is an individualized treatment (blood pressure) goal for Tito Wlaker: Displayed above (on the left) is your goal for blood pressure control. Your most recent blood pressure is also shown above, on the right. You should try to achieve blood pressures that are lower than your goal listed above (on the left). Take all prescribed medications as directed Self-management No Mathieu Camargo JDO Note: This is an individualized self-management goal [...] ongoing basis. documented as of this encounter Procedures Procedure Name Priority Date/Time Associated Comments Diagnosis HEPATITIS C ANTIBODY Routine 11/04/2018 3:40 Need for hepatitis Results for this WITH RELEX RNA, RT PCR PM EDT C screening test procedure are in the results section. COMPREHENSIVE Routine 11/04/2018 3:40 Pre-op evaluation Results for this METABOLIC PANEL PM EDT Hypertension, procedure are in unspecified type the results section. documented in this encounter Results COMPREHENSIVE METABOLIC PANEL (11/04/2018 3:40 PM EDT) Sodium 138 134 - 145 mmol/L [facility] Potassium 4.1 3.5 - 5.1 mmol/L [facility] Chloride 103 98 - 107 mmol/L [facility] CO2 27 22 - 30 mmol/L [facility] Calcium 9.2 8.3 - 10.1 mg/dl [facility] Albumin 4.3 3.5 - 5.0 g/dl [facility] BUN 30 (H) 9 - 20 mg/dl [facility] Creatinine 0.9 0.8 - 1.5 mg/dl [facility] Glucose 97 70 - 99 mg/dl [facility] Total Protein 7.4 6.3 - 8.2 g/dl [facility] Total Bilirubin 1.4 (H) 0.0 - 1.1 MG/DL [facility] AST 29 17 - 59 U/L [facility] ALT 25 21 - 72 U/L [facility] Alkaline 95 40 - 150 U/L [facility] eGFR >60 See Interpretation [facility] Comment: Below ml/min/1.73ml GROUP [facility] Estimated GFR Interpretation: Above 60ml/min/1.73m2 = Normal Renal Function 30-59 ml/min/1.73m2 = Stage 3 Chronic Kidney Disease 15-29 ml/min/1.73m2 = Stage 4 Chronic Kidney Disease Less than 15 ml/min/1.73m2 = Stage 5 Chronic Kidney Disease The GFR value is calculated using the Modification of Diet in Renal Disease ( MDRD) Study Equation which can be found at: https://www.kidney.org/content/tfew-ghcvo-ousfsryn BUN/Creatinine 33 (H) 6 - 22 RATIO [facility] Anion Gap 8 3 - 11 mmol/L [facility] A/G Ratio 1.4 0.8 - 2.0 ratio [facility] Specimen Blood Performing Organization Address City/State/Zipcode Phone Number [facility] [address] [place] [address] [phone] HEPATITIS C ANTIBODY WITH RELEX RNA, RT PCR (11/04/2018 3:40 PM EDT) Hepatitis C Ab 0.01 <1.00 S/C [facility] Specimen Blood Narrative Performed At [facility] Test Result [facility] Conclusion From Testing Algorithm [...] testing. Performing Organization Address City/State/Zipcode Phone Number [facility] [address] [place] [address] documented in this encounter Visit Diagnoses Diagnosis Spondylosis of lumbar region without myelopathy or radiculopathy - Primary Lumbosacral spondylosis without myelopathy Need for hepatitis C screening test Special screening examination for other specified viral diseases Pre-op evaluation Preoperative examination, unspecified Hypertension, unspecified type Aphthous ulcer of mouth Oral aphthae Constipation due to opioid therapy documented in this encounter Insurance Payer Benefit Plan / Subscriber ID Effective Phone Address Type Group Dates MEDICARE MEDICARE PART A xxxxxxxxxxx 2015-Pres Medicare & B ent HU[employer]NA MEDICARE HUMANA MEDICARE xxxxxxxxx 2018-Prese Commercial SUPPLEMENT [address]PP[address]MENT [address] [place] [address] documented as of this encounter
--- OUTSIDE RECORDS SUMMARY | 2018-12-04 05:37 | XMS REPORT | Continuity of Care Document ---
:1955 External Reference #:[id number] Author Name Tito Mazariegos MD (transmitted by agent of provider Kelsey Mitchell) Address [address] [place] [address] Care Team Providers Name Role Phone Mathieu Camargo D.O. - Family Medicine Care Team Information [employer] [phone] Problems Description No Information Available Social History Type Date Description Comments Sex Unknown ETOH Use Occasionally consumes alcohol Tobacco Use Start: Unknown Patient has never smoked Recreational Drug Use Denies Drug Use Smoking Status Reviewed: 11/25/18 Patient has never smoked Allergies, Adverse Reactions, Alerts Active Allergies Reaction Severity Comments Date Penicillin V 09/10/2018 Medications Active Medications SIG Qnty Indications Ordering Provider Date Oxycodone-Acetaminophen 1 tabs by 21tabs Rosalba 09/23/2018 mouth every 4 MD Geena 5-325mg [...] Available Vital Signs Date Vital Result Comment 11/25/2018 10:48am Height 67 inches 5'7" Weight 158.00 lb Heart Rate 88 /min BP Systolic 116 mmHg BP Diastolic 77 mmHg Body Temperature 97.6 F O2 % BldC Oximetry 97 % BMI (Body Mass Index) 24.7 kg/m2 11/24/2018 2:21pm Height 67 inches 5'7" Weight 160.00 lb with shoes Heart Rate 86 /min BP Systolic 126 mmHg LA BP Diastolic 62 mmHg LA BP Systolic Sitting 132 mmHg Ra BP Diastolic Sitting 80 mmHg Ra BP Systolic Standing 120 mmHg Ra BP Diastolic Standing 60 mmHg Ra BMI (Body Mass Index) 25.1 kg/m2 Ejection Fraction None Results Test Date Facility Test Result H/L Range Note CBC Auto 09/24/2018 [facility] White Blood 4.8 10^3/uL Normal 3.5-10.[address] [place] [address] [phone] Red Blood Count 4.56 10^6/uL Normal 4.18-5.48 [...] Blood Cells % 0.0 Laboratory test 09/24/2018 [facility] Erythrocyte Sed 15 mm/Hr Normal 0-[address] [place] [address] [phone] C Reactive Protein 3.60 mg/L Normal <8.01 Procedures Date Code Description Status 11/24/2018 41137 EKG Tracing & Interpretation Completed Medical Devices Description No Information Available Encounters Type Date Location Provider Dx Diagnosis Office Visit 10/20/2018 [facility] [place] M41.9 Scoliosis, 3:30p [facility] Seay MD unspecified M47.895 Other spondylosis, thoracolumbar region 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, thoracolumbar region Office Visit 10/17/2018 [facility] [place] M47.895 Other spondylosis, 10:30a [facility] [place] thoracolumbar region Office Visit 09/26/2018 [facility] [place] M47.816 Spondylosis w/o 10:00a [facility] [place] myelopathy or radiculopathy, lumbar region M48.05 Spinal stenosis, thoracolumbar region Office Visit 09/10/2018 1:00p [facility] [place], M54.5 Low back [facility] [place] pain Assessments Date Code Description Provider 11/25/2018 M05.741 Rheumatoid arthritis Tito Mazariegos MD 11/24/2018 Z01.810 Encounter for preprocedural Da Suarez DO [facility] cardiovascular examination 11/24/2018 M47.816 Spondylosis without myelopathy or Da Suarez DO [facility] radiculopathy, lumbar region 11/24/2018 I10 Essential (primary) hypertension Da Suarez DO [facility]AC 11/24/2018 E78.5 Hyperlipidemia, unspecified Da Suarez DO [facility] 11/13/2018 M47.816 Lumbar spondylosis [place] Seay MD 11/13/2018 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, [place] Seay MD thoracolumbar region 10/20/2018 M41.9 [...] pain [place] Plan of Treatment Future Appointment(s):12/22/2018 9:00 am - Tito Mazariegos MD at [facility]03/09/2019 1:00 pm - [place] at [facility]01/07/2019 3:30 pm - [place] at [facility]12/12/2018 9:00 am - [place] Seay MD at [facility]12/04/2018 7:30 am - [place] at [facility]11/2018 7:30 am - [place] Seay MD at [facility]11/25 - Tito Mazariegos, MDM05.741 Rheumatoid arthritisComments:Preop notes:Be sure to hold Methotrexate at least one week before surgery (hold NOW); do not restartuntil your surgeon approves based on your surgical healing post-surgery. Cervical extension, flexionfilms have been ordered. Please ensure the anesthesiologist evaluating you in pre-op is aware of theresults. Follow-up end of the month after surgery (last week of November).Follow up:november Functional Status Description No Information Available Mental Status Description No Information Available Referrals Refer to Reason for Referral Status Appt Da Suarez DO, FACC preoperative consult Sent [address] [place] [address] [phone] [facility] to request a Sent nutritional consultation to prepare the patient for this operation [address] [place] [address] [phone] Nikhil Corona MD preoperative consult Sent [address] [place] [address] [place] [address] [phone] Nik Faulkner MD 63 y/o male with c/o increased axial low Scheduled 08/2018 back pain has undergone lumbar fusion x 2. Patient would like to be seen soon as possible. [address] [place] [address] [phone]
--- OUTSIDE RECORDS SUMMARY | 2018-12-04 05:37 | XMS REPORT | Continuity of Care Document ---
:1955 External Reference #:[id number] Author Name Rosalba Seay MD (transmitted by agent of provider Lenore Edwards) Address [address] [place] [address] Care Team Providers Name Role Phone Mathieu Camargo D.O. - Family Medicine Care Team Information Train Electronic Technician Problems Description No Information Available Social History Type Date Description Comments Sex Unknown ETOH Use Occasionally consumes alcohol Tobacco Use Start: Unknown Patient has never smoked Recreational Drug Use Denies Drug Use Smoking Status Reviewed: 11/28/18 Patient has never smoked Allergies, Adverse Reactions, [...] Available Vital Signs Date Vital Result Comment 11/28/2018 9:58am Height 67 inches 5'7" Weight 158.00 lb BP Systolic 122 mmHg BP Diastolic 78 mmHg Pain Level 5 BMI (Body Mass Index) 24.7 kg/m2 11/25/2018 10:48am Height 67 inches 5'7" Weight 158.00 lb Heart Rate 88 /min BP Systolic 116 mmHg BP Diastolic 77 mmHg Body Temperature 97.6 F O2 % BldC Oximetry 97 % BMI (Body Mass Index) 24.7 kg/m2 Results Test Date Facility Test Result H/L Range Note CBC No Diff 11/27/2018 [facility] White Blood 5.8 10^3/uL Normal 3.5-10.[address] [place] [address] [phone] Red Blood Count 4.50 10^6/uL Normal 4.18-5.48 Hemoglobin 13.9 g/dL Low 14.0-18.0 Hematocrit 41 % Low 42-52 Mean Corpuscular Volume 90 fL Normal 80-94 Mean Corpuscular Hemoglobin 31 pg Normal 27-31 Mean Corpuscular HGB Conc 34 g/dL Normal 31-36 Red Cell Distribution Width 15 % Normal 10-15 Platelet Count 205 10^3/uL Normal 150-450 Mean Platelet Volume 7.9 fL Normal 7.4-10.4 Inr/Protime 11/27/2018 [facility] Inr 1.01 Normal 0.82-1.[address] [place] [address] [phone] Laboratory test 11/27/2018 [facility] Partial 34.4 Normal 26.0 -38.[address] [place] [address] Time PTT [phone] Basic Metabolic 11/27/2018 [facility] Sodium 136 mmol/L Normal 135-[address] [place] [address] [phone] Potassium 4.0 mmol/L Normal 3.5-5.0 Chloride 100 mmol/L Low 101-111 Co2 Carbon Dioxide 31 mmol/L Normal 22-32 Anion Gap 5 mmol/L Normal 2-11 Glucose 100 mg/dL Normal 70-100 Blood Urea Nitrogen 32 mg/dL High 6-24 Creatinine 0.87 mg/dL Normal 0.67-1.17 BUN/Creatinine Ratio 36.8 High 8-20 Calcium 9.5 mg/dL Normal 8.6-10.3 Egfr Non- 88.6 >60 Egfr 107.2 >60 2 Type & Screen 11/27/2018 [facility] Patient Blood Type A Positive [address] [place] [address] [phone] Antibody Screen NEGATIVE Urinalysis Profile 11/27/2018 [facility] Urine Color Flores [address] [place] [address] [phone] Urine Appearance Clear Urine Specific [place] 1.031 High 1.010-1.030 Urine pH 5.0 Normal 5-9 Urine Urobilinogen Negative Negative Urine Ketones Trace Abnormal Negative Urine Protein Negative Negative Urine Leukocytes Negative Negative Urine Blood Negative Negative Urine Nitrite Negative Negative Urine Bilirubin Negative Negative Urine Glucose Negative Negative Laboratory test 11/25/2018 [facility] Hepatitis B Not Immune Abnormal Immune finding [address] [facility] [place] [place] [address] [phone] Rheumatoid Factor < 10 IU/mL Normal <15 Cyclic Citrullinated Pep Igg <15.6 U 3 Hepatitis C Antibody 11/25/2018 [facility] HCV Index 0.01 s/c [address] [place] [address] [phone] Hepatitis C Antibody Negative Negative Laboratory 11/25/2018 [facility] Hepatitis B Nonreactive Nonreactive test finding [address] [employer] [place] [address] [phone] Quantiferon-T 11/25/2018 [facility] QuantiferonTb Negative Negative 4 B Gold Plus [address] [place] [address] Result [phone] TB1 Ag minus Nil Result -0.03 IU/mL TB2 Ag minus Nil Result -0.04 IU/mL Mitogen minus Nil Result 12.88 IU/mL Nil Result 0.09 IU/mL Laboratory test 11/25/2018 [facility] Erythrocyte Sed 14 mm/Hr Normal 0-[address] [place] [address] [phone] C Reactive Protein 1.32 mg/L Normal <8.01 CBC Auto 11/25/2018 [facility] White Blood 5.8 10^3/uL Normal 3.5-10.[address] [place] [address] [phone] Red Blood Count 4.40 10^6/uL Normal 4.18-5.48 Hemoglobin 13.5 g/dL Low 14.0-18.0 Hematocrit 40 % Low 42-52 Mean Corpuscular Volume 91 fL Normal 80-94 Mean Corpuscular Hemoglobin 31 pg Normal 27-31 Mean Corpuscular HGB Conc 34 g/dL Normal 31-36 Red Cell Distribution Width 15 % Normal 10-15 Platelet Count 226 10^3/uL Normal 150-450 Mean Platelet Volume 8.2 fL Normal 7.4-10.4 Abs Neutrophils 4.2 10^3/uL Normal 1.5-7.7 Abs Lymphocytes 1.1 10^3/uL Normal 1.0-4.8 Abs Monocytes 0.4 10^3/uL Normal 0-0.8 Abs Eosinophils 0.1 10^3/uL Normal 0-0.6 Abs Basophils 0.0 10^3/uL Normal 0-0.2 Abs Nucleated RBC 0.0 10^3/uL Granulocyte % 72.8 % Lymphocyte % 18.8 % Monocyte % 6.6 % Eosinophil % 1.5 % Basophil % 0.3 % Nucleated Red Blood Cells % 0.0 Comp Metabolic 11/25/2018 [facility] Sodium 135 mmol/L Normal 135-145 Panel [address] [place] [address] [phone] Potassium 3.9 mmol/L Normal 3.5-5.0 Chloride 99 mmol/L Low 101-111 Co2 Carbon Dioxide 32 mmol/L Normal 22-32 Anion Gap 4 mmol/L Normal 2-11 Glucose 108 mg/dL High 70-100 Blood Urea Nitrogen 23 mg/dL Normal 6-24 Creatinine 0.80 mg/dL Normal 0.67-1.17 BUN/Creatinine Ratio 28.8 High 8-20 Calcium 9.3 mg/dL Normal 8.6-10.3 Total Protein 6.7 g/dL Normal 6.4-8.9 Albumin 4.3 g/dL Normal 3.2-5.2 Globulin 2.4 g/dL Normal 2-4 Albumin/Globulin Ratio 1.8 Normal 1-3 Total Bilirubin 0.80 mg/dL Normal 0.2-1.0 Alkaline Phosphatase 89 U/L Normal 34-104 Alt 16 U/L Normal 7-52 Ast 16 U/L Normal 13-39 Egfr Non- 97.6 >60 Egfr 118.1 >60 5 CBC Auto 09/24/2018 [facility] White Blood 4.8 10^3/uL Normal 3.5-10.[address] [place] [address] [phone] Red Blood Count 4.56 10^6/uL Normal 4.18-5.48 [...] Blood Cells % 0.0 Laboratory test 09/24/2018 [facility] Erythrocyte Sed 15 mm/Hr Normal 0-[address] [place] [address] [phone] C Reactive Protein 3.60 mg/L Normal <8.01 1 Standard intensity warfarin therapeutic range: 2.0-3.0 High intensity warfarin therapeutic range: 2.5-3.5 2 Because ethnic data is not always readily available, this report includes an eGFR for both -Americans and non- Americans. The National Kidney Disease Education Program (NKDEP) does not endorse the use of the MDRD equation for patients that are not between the ages of 18 and 70, are , have extremes of body size, muscle mass, or nutritional status, or are non- or non-. According to the National Kidney Foundation, irrespective of diagnosis, the stage of the disease is based on the level of kidney function: Stage Description GFR(mL/min/1.73 m(2)) 1 Kidney damage with normal or decreased GFR 90 2 Kidney damage with mild decrease in GFR 60-89 3 Moderate decrease in GFR 30-59 4 Severe decrease in GFR 15-29 5 Kidney failure <15 (or dialysis) 3 REFERENCE VALUE <20.0 (Negative) Test Performed by: [facility] [address], [place] [address] Venetian Blind Machine Operator: Marquise Moss M.D. Ph.D.; CLIA# [id number] 4 M. tuberculosis infection NOT likely 5 Because ethnic data is not always readily available, this report includes an eGFR for both -Americans and non- Americans. The National Kidney Disease Education Program (NKDEP) does not endorse the use of the MDRD equation for patients that are not between the ages of 18 and 70, are , have extremes of body size, muscle mass, or nutritional status, or are non- or non-. According to the National Kidney Foundation, irrespective of diagnosis, the stage of the disease is based on the level of kidney function: Stage Description GFR(mL/min/1.73 m(2)) 1 Kidney damage with normal or decreased GFR 90 2 Kidney damage with mild decrease in GFR 60-89 3 Moderate decrease in GFR 30-59 4 Severe decrease in GFR 15-29 5 Kidney failure <15 (or dialysis) Procedures Date Code Description Status 11/25/2018 77883 Ultrasound, Extremity, Nonvascular, Real-Time W/Image Completed Doc,Limited 11/24/2018 27990 EKG Tracing & Interpretation Completed Medical Devices Description No Information Available Encounters Type Date Location Provider Dx Diagnosis Office Visit 10/20/2018 Neurosurgery Vassilios M41.9 Scoliosis, 3:30p [facility] Seay MD unspecified M47.895 Other spondylosis, thoracolumbar region 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, thoracolumbar region Office Visit 10/17/2018 Neurosurgery Ramsey M47.895 Other spondylosis, 10:30a [facility] ROYAL Wyatt thoracolumbar region Office Visit 09/26/2018 Neurosurgery [facility] M47.816 Spondylosis w/o 10:00a [facility] ROYAL Wyatt myelopathy or radiculopathy, lumbar region M48.05 Spinal stenosis, thoracolumbar region Office Visit 09/10/2018 1:00p Neurosurgery Services Ramsey Wyatt, M54.5 Low back Of [facility] pain Assessments Date Code Description Provider 11/25/2018 M05.741 Rheumatoid arthritis Tito Mazariegos MD 11/25/2018 Z91.89 Taking high risk medication Tito Mazariegos MD 11/25/2018 M47.816 Lumbar spondylosis Tito Mazariegos MD 11/25/2018 M25.512 Shoulder joint pain Tito Mazariegos MD 11/24/2018 Z01.810 Encounter for preprocedural Da Suarez DO [facility] cardiovascular examination 11/24/2018 M47.816 Spondylosis without myelopathy or Da Suarez DO [facility] radiculopathy, lumbar region 11/24/2018 I10 Essential (primary) hypertension Da Suarez DO [facility] 11/24/2018 E78.5 Hyperlipidemia, unspecified Da Suarez, DO [facility] 11/24/2018 M47.895 Other spondylosis, thoracolumbar region Da Suarez DO [facility]AC 11/13/2018 M47.816 Lumbar [...] Tito Mazariegos MD at Rheumatology [facility]03/09/2019 1:00 pm - ROYAL Pace at Neurosurgery [facility]01/07/2019 3:30 pm - ROYAL Pace at Neurosurgery [facility]12/12/2018 9:00 am - Rosalba Seay MD at Neurosurgery [facility]12/04/2018 7:30 am - ROYAL Pace at [facility]surgery [facility]11/2018 7:30 am - Rosalba Seay MD at Neurosurgery [facility] Functional Status Description No Information Available Mental Status Description No Information Available Referrals Refer to Dr Reason for Referral Status Appt Da Suarez DO, FACC preoperative consult Sent [facility] [place] [address] [phone] [facility] for [facility] to request a Sent nutritional consultation to prepare the patient for this operation [address] [place] [address] [phone] Nikhil Corona MD preoperative consult Sent [address] [place] [address] [place] [address] [phone] Nik Faulkner MD 63 y/o male with c/o increased axial low Scheduled 08/2018 back pain has undergone lumbar fusion x 2. Patient would like to be seen soon as possible. [address] [place] [address] [phone]
--- OUTSIDE RECORDS SUMMARY | 2018-12-04 05:38 | XMS REPORT | Continuity of Care Document ---
:1955 External Reference #:[id number] Author Name ROYAL Pace (transmitted by agent of provider Melanie Crowley) Address [address], [place] [address] Care Team Providers Name Role Phone Mathieu Camargo D.O. - Family Medicine Care Team Information Social Media Manager Problems Description No Information Available Social History Type Date Description Comments Sex Unknown ETOH Use Occasionally consumes alcohol Tobacco Use Start: Unknown Patient has never smoked Recreational Drug Use Denies Drug Use Smoking Status Reviewed: 10/17/18 Patient has never smoked Allergies, Adverse Reactions, Alerts Active Allergies Reaction Severity Comments Date Penicillin V 09/10/2018 Medications Active Medications SIG Qnty Indications Ordering Provider Date Oxycodone-Acetaminophe 1 tabs by mouth 21tabs Vassilios 09/23/2018 n every 4 hours MD Geena 5-325mg Tablets as needed pain Atorvastatin Calcium Unknown 40mg Tablets Lisinopril-Hydrochloro Unknown thiazide 20-12.5mg Tablets Omeprazole Unknown 20mg Capsules Tamsulosin HCL Unknown 0.4mg Capsules Duloxetine HCL Unknown 60mg Caps Part Methotrexate Unknown 2.5mg Tablets Leflunomide Unknown 10mg Tablets Folic Acid Unknown 1mg Tablets Immunizations Description No Information Available Vital Signs Date Vital Result Comment 10/17/2018 10:30am Height 67 inches 5'7" Weight 161.00 lb Heart Rate 85 /min BP Systolic 120 mmHg BP Diastolic 72 mmHg Body Temperature 97.0 F Pain Level 7 O2 % BldC Oximetry 98 % BMI (Body Mass Index) 25.2 kg/m2 09/26/2018 9:55am Height 67 inches 5'7" Weight 165.00 lb BP Systolic Sitting 138 mmHg BP Diastolic Sitting 80 mmHg Pain Level 7 BMI (Body Mass Index) 25.8 kg/m2 Results Test Date Facility Test Result H/L Range Note CBC Auto 09/24/2018 [facility] White Blood 4.8 10^3/uL Normal 3.5-10.[address] [place] [address] [phone] Red Blood Count 4.56 10^6/uL Normal 4.18-5.48 [...] Blood Cells % 0.0 Laboratory test 09/24/2018 [facility] Erythrocyte Sed 15 mm/Hr Normal 0-[address] [place] [address] [phone] C Reactive Protein 3.60 mg/L Normal <8.01 Procedures Description No Information Available Medical Devices Description No Information Available Encounters Type Date Location Provider Dx Diagnosis Office Visit 09/10/2018 Neurosurgery Services ROYAL Pace M54.5 Low back pain 1:00p Of Eligibility Examiner Assessments Date Code Description Provider 09/26/2018 M47.816 Lumbar spondylosis ROYAL Pace 09/10/2018 M54.5 Lumbar facet joint pain ROYAL Pace Plan of Treatment Future Appointment(s):10/20/2018 3:30 pm - Rosalba Seay MD at [facility]surgery [facility] Functional Status Description No Information Available Mental Status Description No Information Available Referrals Refer to Reason for Referral Status Appt Date Nik Faulkner MD 63 y/o male with c/o increased axial low Scheduled 08/2018 back pain has undergone lumbar fusion x 2. Patient would like to be seen soon as possible. [address] [place] [address] [phone]
[2018-12-04] MEDS ORDERED: NS 0.9% 1000 ML** 1,000 ML IV SCH (06:00)
[2018-12-04] MEDS ORDERED: Famotidine IV* 10 MG/ML 2 ML (20 mg) IV ONE (06:00)
[2018-12-04] MEDS ORDERED: Gabapentin CAP(*) 300 MG PO ONE (06:00)
[2018-12-04] MEDS ORDERED: Gabapentin CAP(*) 300 MG ONE (06:12)
[2018-12-04] MEDS ORDERED: Acetaminophen TAB* 325 MG ONE (06:12)
[2018-12-04] MEDS ORDERED: Famotidine IV* 10 MG/ML 2 ML (20 mg) ONE (06:13)
[2018-12-04] MEDS ORDERED: fentaNYL* 50 MCG/ML 2 ML VIAL (100 MCG VIAL) ONE ×4 (07:18→17:12)
[2018-12-04] MEDS ORDERED: Midazolam* 1 MG/ML 5 ML VIAL (5 MG) ONE (07:19)
[2018-12-04] MEDS ORDERED: Artificial Tear OPHTH.OINT* 3.5 GM ONE (07:59)
[2018-12-04] MEDS ORDERED: Cisatracurium* 2 MG/ML MDV 5 ML ONE (08:00)
[2018-12-04] MEDS ORDERED: VASOPRESSIN 20 UNITS/ML 1 ML VIAL ONE (08:32)
[2018-12-04] MEDS ORDERED: EPHEDrine (Pressors)* 50 MG/ML VIAL ONE (08:53)
[2018-12-04] MEDS ORDERED: Phenylephrine 40 MCG/ML SYRINGE ONE (09:33)
[2018-12-04] MEDS ORDERED: Dexamethasone IV* 4 MG/ML 1 ML (4 MG) ONE (09:33)
[2018-12-04] MEDS ORDERED: Phenylephrine 10 MG/ML VIAL* 1 ML VIAL ONE (09:33)
[2018-12-04] MEDS ORDERED: Propofol* 10 MG/ML 20 ML BTL ONE ×2 (09:33→13:51)
[2018-12-04] MEDS ORDERED: Succinylcholine* 20 MG/ML 10 ML VIAL ONE (09:33)
[2018-12-04] MEDS ORDERED: Propofol* 500 MG/50 ML BTL ONE (09:34)
[2018-12-04] MEDS ORDERED: Acetaminophen IV 1GM/100ML * 100 ML ONE (09:34)
[2018-12-04] MEDS ORDERED: Lidocaine 2% PF * 5 ML VIAL ONE (09:35)
[2018-12-04] MEDS ORDERED: Remifentanil* 2 MG VIAL ONE (09:41)
[2018-12-04] MEDS ORDERED: Lidocaine 1% w EPI 1:200,000* SDV 30 ML VIAL ONE (10:55)
[2018-12-04] MEDS ORDERED: Bacitracin INJECTION* 50,000 UNITS ONE ×4 (10:55→15:05)
[2018-12-04] MEDS ORDERED: Ondansetron INJ* 2 MG/ML VIAL ONE (14:46)
[2018-12-04] MEDS ORDERED: Vancomycin(*) 1,000 MG VIAL ONE (14:58)
[2018-12-04] MEDS ORDERED: Bupivacaine 0.25% W/EPI* 10 ML SDV ONE (15:31)
[2018-12-04] MEDS ORDERED: Magnesium Hydroxide LIQ* 30 ML UDC PO PRN (16:42)
[2018-12-04] MEDS ORDERED: Ondansetron INJ* 2 MG/ML VIAL IV PRN (16:42)
[2018-12-04] MEDS ORDERED: HYDROmorphone INJ* 0.5 MG/0.5 ML SYRINGE IV SLOW PU PRN (16:57)
[2018-12-04] MEDS ORDERED: Lactated Ringers 1000 ML Bag* 1,000 ML IV SCH (17:00)
[2018-12-04] MEDS ORDERED: Naloxone* 0.4 MG/ML 1 ML VIAL IV PRN (17:03)
[2018-12-04] MEDS ORDERED: diPHENhydraMINE IV* 50 MG/ML 1 ml VIAL (BENADRYL) IV PRN (17:03)
[2018-12-04] MEDS ORDERED: DiMENhydriNATE IV* 50 MG/ML VIAL IV PUSH PRN (17:03)
[2018-12-04] MEDS ORDERED: PROCHLORPERAZINE INJ 5 MG/ML 2 ML VIAL IV PRN (17:03)
[2018-12-04] MEDS: fentaNYL* 50 MCG/ML 2 ML VIAL (100 MCG VIAL) IV PRN ×4 (17:06→17:29)
[2018-12-04] MEDS: oxyCODONE TAB* 5 MG TAB PO PRN ×2 (18:55→23:07)
--- NOTE | 2018-12-04 19:58 | CONS ---
HOSPITAL MEDICINE CONSULTATION REPORT: DATE OF CONSULT: 12/04/18 ATTENDING PHYSICIAN: Dr. Seay. CONSULTING PHYSICIAN: Joanie Overton MD (dictated by Cheri Pereira NP) REASON FOR CONSULT: Co-management of chronic medical conditions. HISTORY OF PRESENT ILLNESS: Mr. Walker is a 63-year-old male with a past medical history significant for rheumatoid arthritis, hypertension, hyperlipidemia, spondylosis of the lumbar spine, history of migraines who presented to [facility] for an elective posterior arthrodesis from T9 to L5 with Dr. Seay. Please see dictated H and P from Dr. Seay for complete details. In brief, the patient had ongoing back pain, failed conservative treatments and opted for the surgery with Dr. Seay. In the immediate postoperative period, the patient has no complaints. He denies any recent fever , chills, nausea, vomiting, or diarrhea. Denies any chest pain or shortness of breath. Denies any cough or hemoptysis. Denies any nausea, vomiting, diarrhea, abdominal pain, hematuria, or dysuria. Denies any focal weakness, sensory loss, visual complaints, dysphagia, arthralgias, myalgias, rashes, lesions, open sores , psychosis, or anxiety. Due to the patient's history of hypertension, hyperlipidemia, and rheumatoid arthritis, Hospital Medicine was asked to help co-manage his care during this hospitalization. PAST MEDICAL HISTORY: Significant for: 1. Rheumatoid arthritis. 2. Hypertension. 3. Hyperlipidemia. 4. Spondylosis of the lumbar spine. 5. History of migraines. 6. Depression. 7. OCD. PAST SURGICAL HISTORY: 1. Right hip surgery. 2. Left knee surgery x3. 3. Lower back surgery. 4. Lumbar spine surgery x2. HOME MEDICATIONS: Include: 1. Cymbalta 60 mg p.o. b.i.d. 2. Lisinopril/hydrochlorothiazide 20/12.5 p.o. daily. 3. Methotrexate 15 mg q.7 days. 4. Ritalin 20 mg t.i.d. 5. Oxycodone/acetaminophen 5/325 one tablet q.12 hours as needed for pain. 6. Pantoprazole 20 mg p.o. daily. ALLERGIES: To PENICILLIN. FAMILY HISTORY: Mother with a history of an NE, at the age of 75 due to her NE. Father with a history of an NE and CABG. No reported history of diabetes or cancer. SOCIAL HISTORY: The patient denies any tobacco. Does report occasional alcohol use and reports occasional marijuana use. He is . Surrogate decision- maker in the event he is unable to make his own decisions is his sister, Marla. He is a full code. REVIEW OF SYSTEMS: An 11-point review of systems was completed. All pertinent positives are mentioned in the HPI, otherwise were negative. PHYSICAL EXAMINATION: General: At this time, Mr. Walker is resting on the stretcher in PACU, he is in no acute distress. HEENT: Head is atraumatic, normocephalic. Eyes: EOMs are intact. Sclerae with edema. No redness. Pupils are equal and reactive to light. Oral mucosa is moist. Neck is supple. Lungs are clear to auscultation bilaterally. No wheezes, rales, or rhonchi. Cardiac: S1, S2. Regular rate and rhythm. No murmurs, rubs, or gallops. Abdomen is soft and nontender. Bowel sounds are present x4. Extremities: He is able to move all 4 extremities. There is no clubbing or cyanosis. Pedal pulses are +2 bilaterally. Posterior tibial pulses are +2 bilaterally. Sensation is intact to bilateral lower extremities. Radial pulses are +2 bilaterally. Neurologic: He is awake, alert, oriented x3. Speech is clear. Thought process is intact. There are no gross focal deficits. Skin is intact. He does have a dressing to his posterior spine with 2 JOSE RAMON drains draining bloody drainage in small amount. DIAGNOSTIC STUDIES/LAB DATA: Sodium on 12/03/18 was 138, potassium 4.1, chloride 103, carbon dioxide 27, glucose was 97, BUN was 30, creatinine 0.9. Calcium was 9.2. ASTs were 29, ALTs were 25, alkaline phosphatase 95. T bili was 1.4. IMPRESSION AND PLAN: Mr. Walker is a 63-year-old male with a past medical history significant for rheumatoid arthritis, hypertension, hyperlipidemia, spondylosis of the lumbar spine, depression, obsessive compulsive disorder, history of migraines, who presented to [facility] for an elective arthrodesis from T9 to L5 with Dr. Seay. Our recommendations are as follows: 1. Status post Posterior arthrodesis, T9 to L5. Management per Neurosurgery. PT/OT per Neurosurgery. Pain management per Neurosurgery. DVT prophylaxis per Neurosurgery and bowel regimen per Neurosurgery. 2. Hypertension. I will continue him on his lisinopril. I will hold his hydrochlorothiazide. 3. Depression and obsessive-compulsive disorder. He should continue on Cymbalta and Ritalin as previously prescribed. 4. Acid reflux. The patient should continue on pantoprazole 20 mg p.o. daily. 5. Rheumatoid arthritis. The patient should continue to hold his methotrexate until wound healing is completed. 6. FEN. He can have a regular diet. 7. Code status. He is a full code. 8. DVT prophylaxis. As per Neurosurgery. TIME SPENT: Time spent on this consultation was 45 minutes, greater than half the time was spent at the bedside reviewing the events leading thus far to this hospitalization, performing physical exam, and reviewing my plan of care. I have discussed this with my attending, Dr. Joanie Overton; she is in agreement with my plan. CHERI PEREIRA, SUBASSEMBLY SUPERVISOR [id number]/CPS #: [id number] KIMMY
[2018-12-04] MEDS: Atorvastatin* 40 MG TAB PO SCH (20:24)
--- NOTE | 2018-12-04 21:02 | CONSULT ---
Consult Consult: INPATIENT PAIN CONSULTATION Tito Walker is a 63 year old male. He has had low back pain for many years. He had an anterior lumbar fusion at L4/5 in February,. He had a second fusion in 2018, a posterior fusion from L1-L4 with Ray cages. After the first surgery, he did okay for about 18 months. His original surgeon retired. He saw a second surgeon to have the 2018 surgery. In May,, his pain increased. He moved to [place] in Jun, 2018. He went to the ER for pain medications. He saw me in September. I ordered Percocet 5/325 every 4 hours with a MDD=4. This dose helped with his pain. He also saw Dr. Seay. He had a new MRI of his lumbar spine. Further surgery was planned. He was admitted today and underwent a T9-L4 PL Fusion. I am asked to see to assist in pain management. PAST MEDICAL HISTORY: Rheumatoid Arthritis, ADHD, HTN, Hypercholesterolemia, Restless Legs Syndrome Allergies Allergy/AdvReac Type Severity Reaction Status Date / Time Penicillins Allergy Intermediate Rash Verified 12/04/18 06:34 Current Medications Atorvastatin Calcium (Lipitor*) 40 mg PO QPM [facility] Last Admin: 12/04/18 20:24 Dose: 40 mg Docusate Sodium (Colace Cap*) 100 mg PO BID ANETTE Duloxetine HCl (Cymbalta Cap*) 60 mg PO BID ANETTE Folic Acid (Folvite Tab*) 1 mg PO QAM [facility] Hydromorphone HCl (Dilaudid Inj*) 0.5 mg IV SLOW PU Q4H PRN PRN Reason: PAIN - SEVERE Lactated Ringer's (Lactated Ringers 1000 Ml Bag*) 1,000 mls @ 75 mls/hr IV .per rate [facility] Last Admin: 12/04/18 18:25 Dose: 75 mls/hr Influenza Virus Vaccine (Fluarix Quad [id number] Syr) 0.5 ml IM .ONCE ONE Stop: 12/05/18 09:01 Lisinopril (Prinivil Tab*) 20 mg PO DAILY [facility] Magnesium Hydroxide (Milk Of Magnesia Liq*) 30 ml PO DAILY PRN PRN Reason: CONSTIPATION Ondansetron HCl (Zofran Inj*) 4 mg IV Q6H PRN PRN Reason: NAUSEA/VOMITING Oxycodone HCl (Roxycodone Tab*) 10 mg PO Q4H PRN PRN Reason: PAIN - MODERATE Last Admin: 12/04/18 18:55 Dose: 10 mg Oxycodone HCl (Roxycodone Tab*) 15 mg PO Q4H PRN PRN Reason: PAIN - SEVERE Pantoprazole Sodium (Protonix Tab*) 40 mg PO QAM ANETTE Pramipexole Dihydrochloride (Mirapex Tab*) 1 mg PO TID ANETTE Senna (Senokot 8.6 Mg Tab*) 2 tab PO BEDTIME ANETTE SOCIAL HISTORY: Non smoker, 2 drinks a week. Denies illicit drug use Vital Signs Temp Pulse Resp BP Pulse Ox 98.4 F 104 16 150/75 99 12/04/18 18:29 12/04/18 18:29 12/04/18 20:39 12/04/18 18:29 12/04/18 18:29 EXAM: GENERAL: In no distress LUNGS: Clear HEART: regular rhythm ABDOMEN: Soft EXTREMITIES: Normal tone NEUROLOGIC: A&O. Moves all 4 extremities ASSESSMENT: 1. T9-L4 PL Fusion 2. Rheumatoid Arthritis PLAN: I think I will need to increase his amount of opioid temporarily to deal with the post surgicla pain. I will increase his oxycodone to 10-15 mg every 4 hours. I re-ordered his usual Mirapex for RLS and have added some bowel medications. I will follow
[2018-12-04] MEDS: DULoxetine DR CAP* 60 MG CAP.DR PO SCH (21:24)
[2018-12-04] MEDS: Docusate CAP* 100 MG PO SCH (21:25)
[2018-12-04] MEDS: Senna TAB 8.6 mg* TAB PO SCH (21:25)
[2018-12-04] MEDS: Pramipexole TAB* 0.5 MG PO SCH (22:36)
[2018-12-05] MEDS: HYDROmorphone INJ* 0.5 MG/0.5 ML SYRINGE IV SLOW PU PRN ×3 (01:58→11:20)
--- NOTE | 2018-12-05 02:11 | OP ---
DATE OF OPERATION: 12/04/18 - ROOM #334 DATE OF : 55 SURGEON: Rosalba Seay MD PARADI TENDER: Ramsey Wyatt, Surgical PA. The case was done with the assistance of surgical PA because of the complexity of the case. ANESTHESIA: General. PRE-OP DIAGNOSES: Degenerative disk disease, adjacent level disease, and proximal junctional failure, in a patient with rheumatoid arthritis. POST-OP DIAGNOSES: Degenerative disk disease, adjacent level disease, and proximal junctional failure, in a patient with rheumatoid arthritis. OPERATIVE PROCEDURE: The patient underwent revision of L1 through L4 posterolateral fusion with extension of posterolateral fusion from L2 to T9 with removal of the left L1 pedicle screw; placement of bilateral T12, T11, T10 , T9 pedicle screws with left side approach; ipsi-contralateral decompressive laminectomies of T11 and T12 with exploration of the left T11-12 disk space with intraoperative navigation and intraoperative electrophysiological monitoring. ESTIMATED BLOOD LOSS: 275 cc. COMPLICATIONS: None. SUMMARY: The patient is a very pleasant 63-year-old gentleman with history of rheumatoid arthritis and history of two previous back surgeries, one for ALIF L4 -5 and lateral interbody fusion at L3-4 and L2-3 with posterior percutaneous screws in [place] followed by second operation for adjacent level disease at L1-2 and L2-3 pseudoarthrosis with posterior revision of instrumentation and PLIF bilaterally at L1-2. The patient developed severe back pain and imaging confirmed the presence of adjacent level disease with proximal junctional failure. After failing conservative treatment modalities, he was offered the option of surgical intervention. After explaining the expectations, limitations, and possible complications of the procedure to the patient and his sister with complications including but not limited to bleeding , infection, risk of injury to adjacent structures, coma, paralysis, , need for additional procedures, anesthesia risk, stroke, blindness, cancer, instability, hardware failure, adjacent level disease, proximal junctional kyphosis, proximal junctional failure, distal junctional kyphosis, distal junctional failure, spinal fluid leak, spinal cord injury, loss of bladder or bowel control, injury to intraabdominal or intrathoracic organs, need for tracheostomy, gastrostomy, or chest tube placement, need for prolonged ICU stay , spinal fluid leak, need for prolonged rehabilitation, scar formation, deep venous thrombosis, pulmonary embolism, anesthesia risks, the patient was agreeable to proceed with surgery. Informed consent was obtained. The patient understood that his condition may not improve, in fact may get worse after surgery and he may need to have additional procedures in the future. He also understood that operative plan may be modified according to intraoperative findings and conditions and the case may be aborted or done in more than 1 stage. He understood that he may require prolonged ICU stay, tracheostomy, gastrostomy, or prolonged rehabilitation and he also understands the significant chance of distal junctional failure and need for additional procedures. DESCRIPTION OF PROCEDURE: The patient was brought to the operating room, was placed under general anesthesia by the anesthesia team. He was carefully positioned prone on the Titi table and all bony prominences were meticulously padded. His skin was prepped and draped in the standard fashion and after appropriate surgical pause and patient identification, a midline incision was marked on the skin from approximately the T9 level all the way to L5, incorporating the previous midline scar incision. The skin was infiltrated with local anesthetic and a #10 surgical blade was used to incise the skin. The incision was carried down to the dorsal fascia and after placement of self- retaining retractors, the dorsal fascia was divided in both sides of the midline with use of Bovie cautery. The paraspinal musculature and the previous scar tissue was then gently elevated with use of periosteal elevators and Bovie cautery. The previously inserted hardware was then exposed as well as the lamina of T12, T11, T10, and T9. The transverse process of L2 and L1 as well as the transverse of the thoracic exposed vertebrae were also exposed. The scar tissue that was previously formed was gently removed and clean bony surfaces were exposed bilaterally. After using rian cutter, the left rian was gently cut at the L1-L2 interspace. The left L1 screw was gently removed. Set of pliers were used. The patient's previous instrumentation were manufactured by [employer] and the system was Radius [id number]. The arthrodesis was then checked in all levels and found to satisfactory to level that we were able to assess, with the exception of mild movement at the L1-2 level. The spinous process clamp was then placed at approximately L2 level and the O-arm navigation star was attached. O-arm imaging was then obtained and the patient's data was transferred to the navigation platform. There was significant amount of degeneration at T12 and L1 disc space and especially at T11-T12 with disk height loss and areas of possible osteolysis were identified at the intraoperative imaging, and was found to be somewhat more progressed on preoperative imaging. Then it was elected to extend the arthrodesis to T9. The pedicles of T12, T11, T10, and T9 were then cannulated with use of high-speed drill and awl tip tap and [employer] instrumentation was inserted. 5.5 x 45 mm screws were used for all levels. End-to-end connector on the left side and 2 [id number] connectors on the right side were then attached on the previous instrumentation system and 2 [employer] chrome 4.5 mm were then cut and contoured in order to connect the screw heads and connect with previous instrumentation. Intraoperative O-arm imaging confirmed excellent placement of all hardware and excellent alignment of the spine. After final tightening of the screw head caps, attention was brought to perform an ipsi-contralateral laminectomy at T12 and T11 from the left side in order to compress the spinal cord, as significant compression was identified in preoperative imaging. Because of the radiographic findings, exploration of the left T11-12 disk space was performed under microscopic magnification. No signs of infections were identified. After copious irrigation and continuous meticulous hemostasis and meticulous inspection, the transverse process of L1, L2 as well as all exposed bony surfaces and transverse process of T12- 9 were carefully decorticated and DBX lesly was used to perform posterolateral arthrodesis. After removing self- retaining retractors and after confirmation of meticulous hemostasis and copious irrigation and meticulous inspection, the wound was closed by layers over 2 Pollo drains, which were tunneled through 2 separate stab wound incisions. The dorsal fascia was approximated with 0 interrupted Vicryl sutures while the subcutaneous tissues were approximated with inverted interrupted 2-0 Vicryl sutures. The skin was then approximated with interrupted running 1 Prolene sutures. All counts were reported to be correct. The patient remained hemodynamically stable throughout the case. Intraoperative electrophysiological monitoring remained stable throughout the case. The patient was then turned supine, was extubated, and was transferred to Recovery in excellent condition, moving all extremities very well. [id number]/[facility] #: [id number] [facility]ITAL[facility]
[2018-12-05] MEDS: oxyCODONE TAB* 5 MG TAB PO PRN ×5 (03:49→23:36)
[2018-12-05] MEDS: Pramipexole TAB* 0.5 MG PO SCH ×3 (08:16→20:51)
[2018-12-05] MEDS: Folic Acid TAB* 1 MG PO SCH (08:16)
[2018-12-05] MEDS: DULoxetine DR CAP* 60 MG CAP.DR PO SCH ×2 (08:16→21:04)
[2018-12-05] MEDS: Pantoprazole TAB * 40 MG TAB PO SCH (08:16)
[2018-12-05] MEDS: Lisinopril TAB* 10 MG PO SCH (08:16)
[2018-12-05] MEDS: Docusate CAP* 100 MG PO SCH ×2 (08:17→20:51)
--- NOTE | 2018-12-05 08:58 | PN ---
Progress Note - Progress Note Date of Service: 12/05/18 SOAP: Subjective: [] 63 y/o male post T9 - L5 fusion and revision POD # 1 patient had no acute issues over night, he does have pain post procedure pain as expected, but his pain medications are helping. Currently he is being followed by pain management and medicine team. His hear has been tachy, but denies issues with chest pain or SOB. He has been voiding using a urinal, but has not gotten out bed since surgery. Today he has a follow up X ray, also requested a TLSO brace to help with support. Over night his drains put out was # 1 120 ml, # 2 160 ml. Objective: [] Initial Vitals Temp Pulse Resp BP Pulse Ox 98.5 F 90 18 140/80 100 11/27/18 10:41 11/27/18 10:41 11/27/18 10:41 11/27/18 10:41 11/27/18 10:41 General: Patient laying flat in bed, appears to have some discomfort. Neruo: A&O x 3 CN II - Xii grossly intact, Pupils equal in size EOM intact, Sensation intact with touch. UPE motor strength 5/5 through out, lower extremity motor strength 5/5 through out. Wound: Dressing C/D/I Assessment: [] 63 y/o male post T9 - L5 fusion with revision POD # 1 patient is doing well has some post pain as expected, meds are helping with pain, still needs to ambulate. Plan: [] 1) Pain management as needed 2) Use IS 3) Follow up X rays 4) Follow up medicine recommendations 5) TLSO brace for support, <Ramsey Wyatt - Last Filed: 12/05/18 08:59> - Progress Note SOAP: Patient seen and examined. Tolerated procedure well yesterday. Ambulates. Preop back pain resolved. Has incisional back pain that is improving. Voids, Tolerates po well. VSS Wound s,c,d AAOx3, MARIZA, CN II-XII grossly intact, Motor 5/5 all extremities, Sensory grossly intact to light touch. 63 yom POD#1 Extension of arthrodesis to T9 XR reveals good alignment of spine, good placement of hardware. Encourage ambulation SCDs, IS Dc drain in am and Dc planning Appreciate IM Dr Salazar's care. Tino Seay MD <Rosalba Seay - Last Filed: 12/05/18 18:38>
[2018-12-05] MEDS ORDERED: Influenza VAC *QUAD* 2019-20* 0.5 ML SYRINGE IM ONE (09:00)
--- NOTE | 2018-12-05 12:29 | PN ---
Subjective Date of Service: 12/05/18 Interval History: Pain 12/04, slept poorly last night. No BM since admission. Objective Active Medications: Atorvastatin Calcium (Lipitor*) 40 mg PO QPM [facility] Last Admin: 12/04/18 20:24 Dose: 40 mg Docusate Sodium (Colace Cap*) 100 mg PO BID [facility] Last Admin: 12/05/18 08:17 Dose: 100 mg Duloxetine HCl (Cymbalta Cap*) 60 mg PO BID [facility] Last Admin: 12/05/18 08:16 Dose: 60 mg Folic Acid (Folvite Tab*) 1 mg PO QAM [facility] Last Admin: 12/05/18 08:16 Dose: 1 mg Hydromorphone HCl (Dilaudid Inj*) 0.5 mg IV SLOW PU Q4H PRN PRN Reason: PAIN - SEVERE Last Admin: 12/05/18 11:20 Dose: 0.5 mg Lisinopril (Prinivil Tab*) 20 mg PO DAILY [facility] Last Admin: 12/05/18 08:16 Dose: 20 mg Magnesium Hydroxide (Milk Of [employer] Liq*) 30 ml PO DAILY PRN PRN Reason: CONSTIPATION Ondansetron HCl (Zofran Inj*) 4 mg IV Q6H PRN PRN Reason: NAUSEA/VOMITING Oxycodone HCl (Roxycodone Tab*) 10 mg PO Q4H PRN PRN Reason: PAIN - MODERATE Last Admin: 12/04/18 18:55 Dose: 10 mg Oxycodone HCl (Roxycodone Tab*) 15 mg PO Q4H PRN PRN Reason: PAIN - SEVERE Last Admin: 12/05/18 08:16 Dose: 15 mg Pantoprazole Sodium (Protonix Tab*) 40 mg PO QAM [facility] Last Admin: 12/05/18 08:16 Dose: 40 mg Polyethylene Glycol/Electrolytes (Miralax*) 17 gm PO 0800,2100 [facility] Pramipexole Dihydrochloride (Mirapex Tab*) 1 mg PO TID [facility] Last Admin: 12/05/18 08:16 Dose: 1 mg Senna (Senokot 8.6 Mg Tab*) 2 tab PO BEDTIME [facility] Last Admin: 12/04/18 21:25 Dose: 2 tab Vital Signs - 8 hr 12/05/18 12/05/18 12/05/18 06:00 07:05 07:28 Temperature Pulse Rate Respiratory 18 20 18 Rate Blood Pressure (mmHg) O2 Sat by Pulse Oximetry 12/05/18 12/05/18 12/05/18 07:36 08:16 10:20 Temperature 98.6 F Pulse Rate 104 Respiratory 16 20 20 Rate Blood Pressure 128/64 (mmHg) O2 Sat by Pulse 99 Oximetry 12/05/18 12/05/18 11:20 11:29 Temperature 99 F Pulse Rate 104 Respiratory 20 20 Rate Blood Pressure 101/45 (mmHg) O2 Sat by Pulse 98 Oximetry Oxygen Devices in Use Now: None Appearance: Alert, on L side in bed. In fair spirits. Looks a little uncomfortable. Eyes: No Scleral Icterus Respiratory: Symmetrical Chest Expansion and Respiratory Effort, Clear to Auscultation, Clear to Percussion Cardiovascular: NL Sounds; No Murmurs; No JVD, RRR, No Edema Extremities: No Edema, No Clubbing, Cyanosis, - Skin: No Rash or Ulcers, No Nodules or Sclerosis, - Neurological: Alert and Oriented x 3 - FORMAN. No tremor. Assess/Plan/Problems-Billing Assessment: - Patient Problems (1) S/P spinal fusion Current Visit: Yes Status: Acute Comment: Complex surgery T9 - L4 12/05/18. Continue pain management as per Dr. Faulkner's plan. Add PEG 17 gm bid start 10 PM. Encourage ambulation. PT in progress. Drains still in place 12/05. (2) Rheumatoid arthritis Current Visit: Yes Status: Acute Code(s): M06.9 - RHEUMATOID ARTHRITIS, UNSPECIFIED SNOMED Code(s): 73076896 Comment: MTX on hold. (3) Depression Current Visit: Yes Status: Acute Code(s): F32.9 - MAJOR DEPRESSIVE DISORDER , SINGLE EPISODE, UNSPECIFIED SNOMED Code(s): 44837991 Comment: Continue home dose duloxetine. (4) Hyperlipidemia Current Visit: Yes Status: Acute Code(s): E78.5 - HYPERLIPIDEMIA, UNSPECIFIED SNOMED Code(s): 20608591 Comment: Continue statin. (5) HTN (hypertension) Current Visit: Yes Status: Acute Code(s): I10 - ESSENTIAL (PRIMARY) HYPERTENSION SNOMED Code(s): 06342867 Comment: Continue lisinopril. Thiazide on hold.
[2018-12-05] MEDS: Atorvastatin* 40 MG TAB PO SCH (18:07)
[2018-12-05] MEDS: Senna TAB 8.6 mg* TAB PO SCH (20:51)
[2018-12-05] MEDS: Polyethylene Glycol 3350* 17 GM PACKET PO SCH (20:51)
[2018-12-05] MEDS ORDERED: Melatonin 3 MG TAB PO PRN (23:55)
[2018-12-06 05:42] LABS: ABS Eosinophils 0.1 10^3/ul (0-0.6); ABS Lymphocytes 0.6 10^3/ul (1.0-4.8); ABS Monocytes 0.9 10^3/ul (0-0.8); ABS Neutrophils 8.5 10^3/ul (1.5-7.7); Eosinophil % 0.6 %; Hematocrit 33 % (42-52); Hemoglobin 11.3 g/dL (14.0-18.0); Lymphocyte % 5.5 %; Mean Corpuscular HGB Conc 35 g/dL (31-36); Mean Corpuscular Hemoglobin 32 pg (27-31); Mean Corpuscular Volume 91 fL (80-94); Mean Platelet Volume 8.3 fL (7.4-10.4); Platelet Count 168 10^3/uL (150-450); Red Blood Count 3.58 10^6 /uL (4.18-5.48); Red Cell Distribution Width 14 % (10-15)
[2018-12-06 05:59] LABS: BUN/Creatinine Ratio 31.3 (8-20); Calcium 8.3 mg/dL (8.6-10.3); EGFR Non-African American 119.8 (>60); Potassium 4.2 mmol/L (3.5-5.0)
[2018-12-06] MEDS: Polyethylene Glycol 3350* 17 GM PACKET PO SCH (07:38)
[2018-12-06] MEDS: Folic Acid TAB* 1 MG PO SCH (07:39)
[2018-12-06] MEDS: DULoxetine DR CAP* 60 MG CAP.DR PO SCH (07:39)
[2018-12-06] MEDS: Pantoprazole TAB * 40 MG TAB PO SCH (07:39)
[2018-12-06] MEDS: Lisinopril TAB* 10 MG PO SCH (07:39)
[2018-12-06] MEDS: oxyCODONE TAB* 5 MG TAB PO PRN ×2 (07:39→12:40)
[2018-12-06] MEDS: Pramipexole TAB* 0.5 MG PO SCH (07:39)
[2018-12-06] MEDS: Docusate CAP* 100 MG PO SCH (07:39)
--- NOTE | 2018-12-06 08:22 | PN ---
Subjective Date of Service: 12/06/18 Interval History: Back pain slowly improving. Slept better last night. No BM yet. Uses back brace while walking. Objective Active Medications: Atorvastatin Calcium (Lipitor*) 40 mg PO QPM [facility] Last Admin: 12/05/18 18:07 Dose: 40 mg Docusate Sodium (Colace Cap*) 100 mg PO BID [facility] Last Admin: 12/06/18 07:39 Dose: 100 mg Duloxetine HCl (Cymbalta Cap*) 60 mg PO BID [facility] Last Admin: 12/06/18 07:39 Dose: 60 mg Folic Acid (Folvite Tab*) 1 mg PO QAM [facility] Last Admin: 12/06/18 07:39 Dose: 1 mg Hydromorphone HCl (Dilaudid Inj*) 0.5 mg IV SLOW PU Q4H PRN PRN Reason: PAIN - SEVERE Last Admin: 12/05/18 11:20 Dose: 0.5 mg Lisinopril (Prinivil Tab*) 10 mg PO DAILY [facility] Magnesium Hydroxide (Milk Of [employer] Liq*) 30 ml PO DAILY PRN PRN Reason: CONSTIPATION Melatonin (Melatonin) 3 mg PO BEDTIME PRN PRN Reason: SLEEP Last Admin: 12/06/18 00:45 Dose: 3 mg Ondansetron HCl (Zofran Inj*) 4 mg IV Q6H PRN PRN Reason: NAUSEA/VOMITING Oxycodone HCl (Roxycodone Tab*) 10 mg PO Q4H PRN PRN Reason: PAIN - MODERATE Last Admin: 12/06/18 07:39 Dose: 10 mg Oxycodone HCl (Roxycodone Tab*) 15 mg PO Q4H PRN PRN Reason: PAIN - SEVERE Last Admin: 12/05/18 23:36 Dose: 15 mg Pantoprazole Sodium (Protonix Tab*) 40 mg PO QAM [facility] Last Admin: 12/06/18 07:39 Dose: 40 mg Polyethylene Glycol/Electrolytes (Miralax*) 17 gm PO 0800,2100 [facility] Last Admin: 12/06/18 07:38 Dose: 17 gm Pramipexole Dihydrochloride (Mirapex Tab*) 1 mg PO TID [facility] Last Admin: 12/06/18 07:39 Dose: 1 mg Senna (Senokot 8.6 Mg Tab*) 2 tab PO BEDTIME [facility] Last Admin: 12/05/18 20:51 Dose: 2 tab Vital Signs - 8 hr 12/06/18 12/06/18 12/06/18 02:01 03:29 07:39 Temperature 98.9 F Pulse Rate 97 Respiratory 19 19 16 Rate Blood Pressure 116/61 (mmHg) O2 Sat by Pulse 98 Oximetry Oxygen Devices in Use Now: None Appearance: Alert, partly up in bed. In good spirits. Looks comfortable. Eyes: No Scleral Icterus Respiratory: Symmetrical Chest Expansion and Respiratory Effort, Clear to Auscultation, Clear to Percussion Cardiovascular: NL Sounds; No Murmurs; No JVD, RRR, No Edema, - Extremities: No Edema, No Clubbing, Cyanosis, - Skin: No Rash or Ulcers, No Nodules or Sclerosis, - Neurological: Alert and Oriented x 3, NL Sensation Result Diagrams: 12/06/18 04:28 12/06/18 04:28 Assess/Plan/Problems-Billing Assessment: - Patient Problems (1) S/P spinal fusion Current Visit: Yes Status: Acute Comment: Complex surgery T9 - L4 12/05/18. Continue pain management as per Dr. Faulkner's plan. Continue PEG 17 gm bid. Encourage ambulation. PT in progress. Drains still in place 10 AM. (2) Rheumatoid arthritis Current Visit: Yes Status: Acute Code(s): M06.9 - RHEUMATOID ARTHRITIS, UNSPECIFIED SNOMED Code(s): 85979232 Comment: MTX, leflunomide on hold. (3) Depression Current Visit: Yes Status: Acute Code(s): F32.9 - MAJOR DEPRESSIVE DISORDER , SINGLE EPISODE, UNSPECIFIED SNOMED Code(s): 89055607 Comment: Continue home dose duloxetine. (4) Hyperlipidemia Current Visit: Yes Status: Acute Code(s): E78.5 - HYPERLIPIDEMIA, UNSPECIFIED SNOMED Code(s): 38889620 Comment: Continue statin. (5) HTN (hypertension) Current Visit: Yes Status: Acute Code(s): I10 - ESSENTIAL (PRIMARY) HYPERTENSION SNOMED Code(s): 95030909 Comment: Reduce lisinopril to 10 mg daily start 10/12 AM. Thiazide on hold.
[2018-12-06 08:49] VITALS: BP 101/59
--- NOTE | 2018-12-06 12:41 | PN ---
Progress Note - Progress Note Date of Service: 12/06/18 SOAP: Subjective: []Patient seen and examined. No events ON. Ambulates. Preop back pain resolved. Incisional back pain well controlled. Voids, Tolerates po well. Objective: []VSS , Afebrile Wound s,c,d Drains output noted. Drains were DC. Catheters appeared to be intact. No complications. Patient tolerated procedure well. AAOx3, MARIZA, CN II-XII grossly intact, Motor 5/5 all extremities, Sensory grossly intact to light touch. Assessment: [] 63 yom POD#2 Extension of arthrodesis to T9 Plan: [] Encourage ambulation SCDs, IS Dc planning, possible today. DC instructions were given. No lifting, No bending, No driving, Use brace when OOB. Keep incision dry. Wound dressing changes every two days. May shower in two days.No Baths. Follow up in office in 7-10 days. Appreciate IM, Dr Salazar's care. Tino Seay MD
--- NOTE | 2018-12-06 13:58 | PN ---
"Progress Note - Progress Note Date of Service: 12/06/18 Note: This report was requested by: Wilmer Del Cid | Reference #: [id number] Others' Prescriptions Patient Name: Tito Walker Date: 1955 Address: [address] [place] [address] [place], [place] [address] Sex: Male Rx Written Rx Dispensed Drug Quantity Days Supply Prescriber Name 11/10/2018 11/11/2018 oxycodone-acetaminophen 5-325 mg tablet [address] Burns 10/10/2018 10/14/2018 oxycodone-acetaminophen 5-325 mg tablet 120 30 Nataliia Kimble () 10/01/2018 10/02/2018 oxycodone-acetaminophen 5-325 mg tablet 10 5 Mathieu Camargo J 09/23/2018 09/23/2018 oxycodone-acetaminophen 5-325 mg tab 21 7 Ramsey Wyatt 08/26/2018 09/17/2018 methylphenidate 20 mg tablet 90 30 Torri Remy 08/14/2018 08/18/2018 oxycodone-acetaminophen 5-325 mg tablet 15 3 Christopher Manuel * - Drugs marked with an asterisk are compound drugs. If the compound drug is made up of more than one controlled substance, then each controlled substance will be a separate row in the table. Time spent on discharge including exam of patient, discussion with pt, nurse, CM , Dr. Seay, review of chart and preparation of discharge documents is 45 minutes."
--- NOTE | 2018-12-06 21:58 | DS ---
CC: Dr. Seay; Dr. Mathieu Camargo DISCHARGE SUMMARY: DATE OF ADMISSION: DATE OF DISCHARGE: 12/06/18 HISTORY OF PRESENT ILLNESS AND HOSPITAL COURSE: This 63-year-old man was admitted electively by Dr. Seay because of back pain. He has a history of rheumatoid arthritis. He has had multiple surg eries in the past on his lumbar spine. He was admitted for further surgery. He had surgery on 12/04/[address] Seay. This is a complex procedure extending from T4 to T9 lasting approximately 5 hours. The patient did well postoperatively. He was ambulating easily. He has a back brace, which he will wear whenever he is up and about. He is not working and will follow up with Dr. Seay as instru cted. Dr. Seay gave him further discharge instructions. The patient had stopped his methotrexate about a week before surgery. 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 I also changed his blood pressure med icine, instead of lisinopril hydrochlorothiazide he will be on lisinopril only and at a lower dose th an before. FINAL DIAGNOSES: 1. Status post spinal fusion. 2. Rheumatoid arthritis. 3. Depression. 4. Hyperlipidemia. 5. Hypertension. DISCHARGE MEDICATIONS: 1. Lisinopril 10 mg daily. 2. Oxycodone 5 mg tablets 1 to 2 every 4 hours p.r.n. 3. Polyethylene glycol 17 g b.i.d. 4. Pramipexole 1 mg t.i.d. 5. Methylphenidate 20 mg b.i.d. 6. Folic acid 1 mg daily. 7. Omeprazole 20 mg daily. 8. Atorvastatin 40 mg in the evening. 9. Tamsulosin 0.4 mg in the evening. 10. Duloxetine 60 mg b.i.d. 11. Diclofenac 75 mg b.i.d. CONDITION ON DISCHARGE: Improved. DISPOSITION ON DISCHARGE: Discharged home. [id number]/[facility] #: [id number]
[2018-12-07] MEDS ORDERED: Lisinopril TAB* 10 MG PO SCH (09:00)
== END 2018-12-06 14:30 | disposition home health service (06) | DRG 458 ==
LOC: AA 05:33 → INTOOBSV 05:33 → AA 16:45 → OBSVTOIN 16:45 → SSU 18:17
PROVIDERS: ADMIT Neurological Surgery; ATTEND Neurological Surgery
PROC: 0RG Upper Joints, Fusion (ICD-10-PCS; 2018-12-04)
PROC: 00NX0ZZ Release Thoracic Spinal Cord, Open Approach (ICD-10-PCS; 2018-12-04)
PROC: 0SG00J1 Fusion of Lumbar Vertebral Joint with Synthetic Substitute, Posterior Approach, Posterior Column, Open Approach (ICD-10-PCS; 2018-12-04)
PROC: 4A11X4G Monitoring of Peripheral Nervous Electrical Activity, Intraoperative, External Approach (ICD-10-PCS; 2018-12-04)
PROC: 8E0WXBZ Computer Assisted Procedure of Trunk Region (ICD-10-PCS; 2018-12-04)
PROC: 0SP00JZ Removal of Synthetic Substitute from Lumbar Vertebral Joint, Open Approach (ICD-10-PCS; principal; 2018-12-04 07:30)
DX: M51.34 Other intervertebral disc degeneration, thoracic region (principal); M47.816 Spondylosis without myelopathy or radiculopathy, lumbar region; N40.0 Benign prostatic hyperplasia without lower urinary tract symptoms; F41.9 Anxiety disorder, unspecified; F32.9 Major depressive disorder, single episode, unspecified; I10 Essential (primary) hypertension; M06.9 Rheumatoid arthritis, unspecified; E78.5 Hyperlipidemia, unspecified; G43.909 Migraine, unspecified, not intractable, without status migrainosus; F42.9 Obsessive-compulsive disorder, unspecified; K21.9 Gastro-esophageal reflux disease without esophagitis; M51.35 Other intervertebral disc degeneration, thoracolumbar region; M47.895 Other spondylosis, thoracolumbar region; Z23 Encounter for immunization; Z88.0 Allergy status to penicillin; Z72.89 Other problems related to lifestyle; Z98.1 Arthrodesis status; Z82.0 Family history of epilepsy and other diseases of the nervous system
CPT/HCPCS: 36415; 72080; 76000; 80048; 85025; 88300; 90686; A9270-GY; C1713; C1776; C9359; G8978-GP-CI; G8979-GP-CI; G8980-GP-CI; J0330; J1100; J1170; J2001; J2250; J2405; J2704; J3010; J3370

== ENCOUNTER 2023-06-15 10:33 | Inpatient (IN) ==
[2023-06-15] MEDS ORDERED: ceFAZolin 2 GM in NS PREMIX 2 GM/100 ML BAG IVPB ONE (11:22)
[2023-06-15 12:12] LABS: ABS Lymphocytes 0.5 10^3/uL (1.0-4.8); ABS Neutrophils 8.9 10^3/uL (1.5-7.6); ABS Nucleated RBC 0.01 10^3/ul; Eosinophil % 0.1 %; Hematocrit 38.4 % (38-53); Hemoglobin 13.8 g/dL (13.2-16.3); Lymphocyte % 5.2 %; Mean Corpuscular Hemoglobin 32.7 pg (27-33); Mean Corpuscular Hgb Conc 35.9 g/dL (31-36); Mean Corpuscular Volume 91.2 fL (80-97); Mean Platelet Volume 7.3 fL (7.5-11.2); Nucleated Red Blood Cells % 0.1 %/100WBC (0.0-0.8); Platelet Count 144 10^3/uL (150-450); Red Blood Count 4.21 10^6/uL (4.06-5.63); Red Cell Distribution Width 13.7 % (12-17); White Blood Count 10.4 10^3/uL (3.6-10.2)
[2023-06-15 12:30] LABS: Albumin 3.8 g/dL (3.2-5.2); Albumin/Globulin Ratio 1.5 (1-3); C Reactive Protein 272.93 mg/L (<8.01); Calcium 9.2 mg/dL (8.6-10.3); Creatinine, Serum 0.78 mg/dL (0.67-1.17); Globulin 2.6 g/dL (2-4); Potassium 3.6 mmol/L (3.5-5.0); Total Bilirubin 2.8 mg/dL (0.2-1.0); Total Protein 6.4 g/dL (6.4-8.9); eGFR CKD-EPI 97.7 (>60)
[2023-06-15] MEDS: ceFAZolin 2 GM/50 ML BAG IV ONE (12:34)
[2023-06-15] MEDS: fentaNYL 100 mcg/2 ml 50 MCG/ML VIAL IV SLOW PU ONE (12:48)
[2023-06-15 13:38] LABS: Body Fluid Appearance Cloudy; Body Fluid Color Pink; Body Fluid Source Synovial Fluid
[2023-06-15 14:14] LABS: Body Fluid Total Nucleated 20109 /mcL
[2023-06-15 14:30] LABS: Body Fluid Mono 2 %; Body Fluid Total Cells Counted 200
[2023-06-15] MEDS: Vancomycin 1,250 MG in NS 0.9% 250 ml 250 ML IVPB ONE (15:01)
[2023-06-15] MEDS ORDERED: Senna TAB 8.6 mg TAB PO PRN (15:09)
[2023-06-15] MEDS ORDERED: Ondansetron 4 mg VIAL 2 MG/ML 2 ml VIAL IV PRN (15:09)
[2023-06-15] MEDS ORDERED: Vancomycin 1,500 MG in NS 0.9% 250 ml 250 ML IVPB SCH (15:17)
[2023-06-15] MEDS ORDERED: Vancomycin per Pharmacy 1 EA NOTE FOLLOW UP PRN (16:13)
[2023-06-15] MEDS: Enoxaparin 40 MG/0.4 ML SYR SUBCUT ONE (17:50)
[2023-06-15] MEDS: cefTRIAXone 1 gm/50 mL D5W 1 GM/50 ML BAG IV SCH (18:14)
[2023-06-15] MEDS ORDERED: ceFAZolin 2 GM in NS PREMIX 2 GM/100 ML BAG IVPB SCH (21:00)
[2023-06-15] MEDS: DULoxetine DR 60 mg CAP PO SCH (21:55)
[2023-06-16] MEDS: Vancomycin 1000 MG in NS 0.9% 250 ML IVPB SCH (00:38)
[2023-06-16 06:56] LABS: Hemoglobin 12.4 g/dL (13.2-16.3); Mean Corpuscular Hemoglobin 32.1 pg (27-33); Mean Corpuscular Hgb Conc 35.3 g/dL (31-36); Mean Corpuscular Volume 90.9 fL (80-97); Mean Platelet Volume 7.3 fL (7.5-11.2); Platelet Count 133 10^3/uL (150-450); Red Blood Count 3.85 10^6/uL (4.06-5.63); Red Cell Distribution Width 13.4 % (12-17); White Blood Count 7.9 10^3/uL (3.6-10.2)
[2023-06-16 07:38] LABS: Calcium 8.4 mg/dL (8.6-10.3); Creatinine, Serum 0.85 mg/dL (0.67-1.17); Magnesium 1.6 mg/dL (1.9-2.7); Potassium 3.6 mmol/L (3.5-5.0); eGFR CKD-EPI 95.2 (>60)
[2023-06-16 08:03] LABS: ABS Lymphocytes 0.4 10^3/uL (1.0-4.8); ABS Monocytes 0.9 10^3/uL (0.0-1.1); ABS Neutrophils 6.7 10^3/uL (1.5-7.6); Eosinophil % 0.2 %; Lymphocyte % 4.4 %
[2023-06-16] MEDS ORDERED: fentaNYL 100 mcg/2 ml 50 MCG/ML VIAL ONE (10:45)
[2023-06-16] MEDS ORDERED: Midazolam 2 mg/2 ml VIAL 1 mg/ml 2 ml VIAL (2 mg) ONE (10:45)
[2023-06-16] MEDS ORDERED: Ondansetron 4 mg VIAL 2 MG/ML 2 ml VIAL ONE (10:45)
[2023-06-16] MEDS ORDERED: Propofol 10 MG/ML 20 ML BTL ONE (10:45)
[2023-06-16] MEDS ORDERED: Dexamethasone IV 4 MG/ML VIAL 1 ml VIAL ONE (10:45)
[2023-06-16] MEDS ORDERED: ceFAZolin 2 GM PREMIX 2 GM/50 ML BAG ONE (10:54)
[2023-06-16] MEDS ORDERED: ROPIVACAINE 5 MG/ML 30 ML BTL (0.5%) ONE (11:10)
[2023-06-16] MEDS ORDERED: Metoclopramide 5 MG/ML VIAL (10 mg) IV PRN (12:28)
[2023-06-16] MEDS ORDERED: Ondansetron 4 mg VIAL 2 MG/ML 2 ml VIAL IV PRN (12:28)
[2023-06-16] MEDS ORDERED: Naloxone 0.4 mg VIAL 0.4 mg/ml 1 ml VIAL IV PRN (12:28)
[2023-06-16] MEDS ORDERED: fentaNYL 100 mcg/2 ml 50 MCG/ML VIAL IV PRN (12:28)
[2023-06-16] MEDS ORDERED: NS 0.45% 1000 ml BAG 1,000 ML IV SCH (13:00)
[2023-06-16] MEDS ORDERED: Lactulose 30 ml UDC PO PRN (13:24)
[2023-06-16] MEDS ORDERED: Magnesium Hydroxide LIQ 30 ML UDC PO PRN (13:24)
[2023-06-16] MEDS: Acetaminophen IV 1 GM/100ML 1,000 MG/100 ML BAG IV ONE (14:37)
[2023-06-16] MEDS: Scopolamine 1 mg/72hr PATCH TRANSDERM ONE (14:38)
[2023-06-16] MEDS: Buffered Lidocaine 1% SYRIN 1 ml INTRADERM ONE (14:38)
[2023-06-16] MEDS: Lactated Ringers 1000 ml BAG 1,000 ML IV SCH ×2 (14:39→15:45)
[2023-06-16] MEDS: Magnesium Sulfate 2 gm BAG 2 GM/50 ML BAG IVPB ONE (17:40)
[2023-06-16] MEDS: Magnesium Hydroxide LIQ 30 ML UDC PO SCH (21:00)
[2023-06-17 06:18] LABS: ABS Lymphocytes 0.4 10^3/uL (1.0-4.8); ABS Monocytes 0.6 10^3/uL (0.0-1.1); ABS Neutrophils 7.2 10^3/uL (1.5-7.6); Hematocrit 32.6 % (38-53); Hemoglobin 11.3 g/dL (13.2-16.3); Lymphocyte % 4.5 %; Mean Corpuscular Hemoglobin 31.8 pg (27-33); Mean Corpuscular Hgb Conc 34.8 g/dL (31-36); Mean Corpuscular Volume 91.5 fL (80-97); Mean Platelet Volume 7.3 fL (7.5-11.2); Platelet Count 166 10^3/uL (150-450); Red Blood Count 3.56 10^6/uL (4.06-5.63); Red Cell Distribution Width 13.5 % (12-17); White Blood Count 8.2 10^3/uL (3.6-10.2)
[2023-06-17 07:25] LABS: Calcium 8.2 mg/dL (8.6-10.3); Creatinine, Serum 0.79 mg/dL (0.67-1.17); Magnesium 2.2 mg/dL (1.9-2.7); Potassium 3.8 mmol/L (3.5-5.0); eGFR CKD-EPI 97.4 (>60)
[2023-06-17] MEDS ORDERED: Vitamin THERAPEUTIC TAB PO SCH (09:00)
[2023-06-17 09:41] LABS: Albumin 3.2 g/dL (3.2-5.2); Albumin/Globulin Ratio 1.3 (1-3); Direct Bilirubin 0.4 mg/dL (0.03-0.18); Globulin 2.4 g/dL (2-4); Indirect Bilirubin 0.6 mg/dL (0.3-1.0); Total Protein 5.6 g/dL (6.4-8.9)
[2023-06-17] MEDS ORDERED: Vancomycin Trough Check NOTE FOLLOW UP ONE (12:30)
[2023-06-17] MEDS: cefTRIAXone 1 GM Q24H (ADVAN) IVPB ONE (17:07)
[2023-06-18 06:41] LABS: ABS Eosinophils 0.1 10^3/uL (0.0-0.5); ABS Lymphocytes 1.1 10^3/uL (1.0-4.8); ABS Monocytes 0.6 10^3/uL (0.0-1.1); ABS Neutrophils 4.6 10^3/uL (1.5-7.6); Eosinophil % 0.8 %; Hematocrit 36.1 % (38-53); Hemoglobin 12.6 g/dL (13.2-16.3); Lymphocyte % 17.1 %; Mean Corpuscular Hemoglobin 31.9 pg (27-33); Mean Corpuscular Volume 91.1 fL (80-97); Mean Platelet Volume 7.3 fL (7.5-11.2); Nucleated Red Blood Cells % 0.1 %/100WBC (0.0-0.8); Platelet Count 240 10^3/uL (150-450); Red Blood Count 3.96 10^6/uL (4.06-5.63); Red Cell Distribution Width 13.7 % (12-17); White Blood Count 6.4 10^3/uL (3.6-10.2)
[2023-06-18 07:08] LABS: Albumin 3.5 g/dL (3.2-5.2); Albumin/Globulin Ratio 1.3 (1-3); Calcium 8.3 mg/dL (8.6-10.3); Creatinine, Serum 0.81 mg/dL (0.67-1.17); Globulin 2.8 g/dL (2-4); Phosphorus 2.6 mg/dL (2.5-5.0); Potassium 3.5 mmol/L (3.5-5.0); Total Bilirubin 0.7 mg/dL (0.2-1.0); Total Protein 6.3 g/dL (6.4-8.9); eGFR CKD-EPI 96.6 (>60)
[2023-06-18] MEDS: cefTRIAXone 2 gm/50 mL D5W 2 GM/50 ML BAG IV SCH (16:58)
[2023-06-18] MEDS ORDERED: cefTRIAXone 1 gm/50 mL D5W 1 GM/50 ML BAG IV SCH (17:00)
[2023-06-19 07:59] LABS: Hematocrit 33.4 % (38-53); Hemoglobin 11.7 g/dL (13.2-16.3); Platelet Count 229 10^3/uL (150-450)
[2023-06-19 09:07] LABS: ABS Eosinophils 0.1 10^3/uL (0.0-0.5); ABS Lymphocytes 0.9 10^3/uL (1.0-4.8); ABS Monocytes 0.8 10^3/uL (0.0-1.1); ABS Neutrophils 5.3 10^3/uL (1.5-7.6); Hematocrit 33.3 % (38-53); Hemoglobin 11.7 g/dL (13.2-16.3); Lymphocyte % 12.1 %; Mean Corpuscular Hemoglobin 31.7 pg (27-33); Mean Corpuscular Hgb Conc 35.1 g/dL (31-36); Mean Corpuscular Volume 90.4 fL (80-97); Mean Platelet Volume 7.3 fL (7.5-11.2); Platelet Count 247 10^3/uL (150-450); Red Blood Count 3.68 10^6/uL (4.06-5.63); Red Cell Distribution Width 13.6 % (12-17)
[2023-06-19 09:13] LABS: Calcium 7.8 mg/dL (8.6-10.3); Creatinine, Serum 0.77 mg/dL (0.67-1.17); Magnesium 2.2 mg/dL (1.9-2.7); Potassium 4.2 mmol/L (3.5-5.0); eGFR CKD-EPI 98.1 (>60)
[2023-06-20 07:19] LABS: ABS Eosinophils 0.1 10^3/uL (0.0-0.5); ABS Lymphocytes 0.9 10^3/uL (1.0-4.8); ABS Monocytes 0.8 10^3/uL (0.0-1.1); ABS Neutrophils 8.4 10^3/uL (1.5-7.6); ABS Nucleated RBC 0.01 10^3/ul; Eosinophil % 1.1 %; Hematocrit 33.7 % (38-53); Hemoglobin 11.8 g/dL (13.2-16.3); Lymphocyte % 8.5 %; Mean Corpuscular Hemoglobin 31.7 pg (27-33); Mean Corpuscular Hgb Conc 34.9 g/dL (31-36); Mean Corpuscular Volume 90.8 fL (80-97); Nucleated Red Blood Cells % 0.1 %/100WBC (0.0-0.8); Platelet Count 271 10^3/uL (150-450); Red Blood Count 3.71 10^6/uL (4.06-5.63); Red Cell Distribution Width 13.7 % (12-17); White Blood Count 10.1 10^3/uL (3.6-10.2)
[2023-06-20 07:42] LABS: Albumin 3.1 g/dL (3.2-5.2); Albumin/Globulin Ratio 1.3 (1-3); Calcium 7.7 mg/dL (8.6-10.3); Creatinine, Serum 0.84 mg/dL (0.67-1.17); Globulin 2.4 g/dL (2-4); Potassium 4.3 mmol/L (3.5-5.0); Total Bilirubin 1.2 mg/dL (0.2-1.0); Total Protein 5.5 g/dL (6.4-8.9); eGFR CKD-EPI 95.6 (>60)
[2023-06-20 10:24] VITALS: BP 141/70
[2023-06-20] MEDS: cefTRIAXone 2 gm/50 mL D5W 2 GM/50 ML BAG IV SCH (10:42)
== END 2023-06-20 13:19 | disposition home health service (06) | DRG 485 ==
LOC: EDHOLD 10:33 → ED 10:33 → INTOOBSV 15:09 → SUATTDRO 15:09 → OBSVTOIN 15:09 → MED 16:40 → SUATTDRO 06-16 15:32
PROVIDERS: ADMIT Family Medicine; ATTEND Student in an Organized Health Care Education/Training Program